=== PATIENT | female | born 1950 | race Caucasian/White ===

== ENCOUNTER 2016-11-06 16:09 | Inpatient (IN) ==
[2016-11-06] MEDS ORDERED: ZALEPLON 5 MG CAPSULE PO PRN (17:33)
[2016-11-06] MEDS ORDERED: ACETAMINOPHEN 325 MG TABLET PO PRN (17:33)
[2016-11-06] MEDS ORDERED: ONDANSETRON 4 MG/2 ML VIAL IV PRN (17:33)
--- NOTE | 2016-11-06 17:39 | Emergency Department Note ---
IJaren Gwan, am scribing for, and in the presence of, Terry Carlin M.D. 16:51. ITesfaye Howard T, M.D., personally performed the services described in this documentation, ascribed by Ananya Eastman in my presence, and it is both accurate and complete [id number] . Arrival - Arrival Chief Complaint: Chest Pain Stated Complaint: TRANSFER FOR NSTEMI FROM [facility] EMS ED Nursing Triage Note: TRANSFER FROM [facility] WITH A NSTEMI Mode of Arrival: Stretcher Limitations: No Limitations Source: Patient, Old Records Reviewed, RN Notes Reviewed Time Seen by Provider: 11/06/16 16:31 - History of Present Illness HPI Narrative: Patient is a 66 y/o female who presents to the ED via EMS from [facility] for further evaluation of chest pain. Pt has a PMHx of [place], CHF , CAD, NIDDM, IDDM, CABG, anemia and stents. Patient stated that she was cleaning her house when the onset of chest pain occurred. This prompted her to report to [facility] ED. Upon review, pt was transferred to ED for further evaluation. She describes her chest pain as pressure and stated that it radiates down her left arm causing weakness and the feeling that her arm is going to "explode". Patient confirmed that this happened before in 12/2015, that she is followed by Dr. Beaver, that she last saw Sports Doctor in office 10/04/2016 and that her pain is worsened with exertion. During exam, pt stated that her pain had eased at [facility] after NTG and pain medication but now she is starting to have pain again. Onset (ago): hour(s) Consistency: constant Severity: moderate Date of Last Menstrual Period: HYST Allergies/Adverse Reactions: Allergies Allergy/AdvReac Type Severity Reaction Status Date / Time FLU MED ? Allergy Seizure Uncoded 08/16/15 17:12 Home Medications: Home Medications Medication Instructions Recorded Confirmed Type Furosemide Tab [Lasix Tab] 80 mg PO QAM 08/17/15 11/06/16 History Pioglitazone HCl/Metformin HCl 2 each PO BID 08/17/15 11/06/16 History [Pioglitazone-Metformin 15-500] Hydrocodone/Acetaminophen [[place] 1 each PO TID PRN 11/06/16 11/06/16 History 10-325 Tablet] Pregabalin [Lyrica] 75 mg PO BID 11/06/16 11/06/16 History Review of System - Review of System 12 point system: reviewed and no additional remarkable complaints except as stated - Review of System Constitutional: Absent: chills, fever Eyes: Absent: discharge Head/Ears/Nose/Throat: Absent: earache Respiratory: Absent: cough Cardiovascular: Present: as per HPI, chest pain Gastrointestinal: Absent: abdominal pain, nausea, vomiting, diarrhea Musculoskeletal: Absent: arm pain, back pain, lower back pain, leg pain, neck pain Skin: Absent: rash Medical,Surgical,& Family Hx - Medical History Cardio: History of: CHF, CAD, [place] No history of: Hypertension Endocrine: History of: Diabetes Mellitus (IDDM), Diabetes Mellitus (NIDDM) - Surgical History Cardiac Surgeries: Sugical HX of: Cardiac Catheterization, Cardiac Surgery (CABG , THEN STENTS) - Family History Family History: Reports;: Family Cancer, Family Diabetes (mother and father), Family Heart Disease, Family Hypertension - Social History Smoking Status: Unknown if ever smoked Frequency of Alcohol Use: Unknown Type of Drug Use: Unknown Exam Vital Signs: Vital Signs Temperature 97.6 F 11/06/16 16:12 Pulse Rate 69 11/06/16 16:12 Respiratory Rate 18 11/06/16 17:28 Blood Pressure 176/80 11/06/16 16:12 O2 Sat by Pulse Oximetry 99 11/06/16 16:12 - General General appearance: alert, in no apparent distress - Head Head exam: Present: atraumatic, normocephalic - Eye Eye exam: Present: normal appearance, PERRL, EOMI - ENT ENT exam: Present: normal oropharynx, mucous membranes moist, TM's normal bilaterally, normal external ear exam - Neck Neck exam: Present: full ROM, trachea midline. Absent: tenderness - Chest Chest inspection: Present: symmetric chest wall rise. Absent: tenderness - Respiratory Respiratory exam: Present: normal lung sounds bilaterally. Absent: respiratory distress - Extremities Exam Extremities exam: Absent: full ROM (left arm ) - Neurological Exam Neurological exam: Present: alert, oriented X3 - Psychiatric Psychiatric exam: Present: normal affect, normal mood - Skin Skin exam: Present: warm, dry, intact, normal color Course Course Narrative: Medical decision making: Patient discussed with hospitalist for admission and cardiology consultation. She appears stable, elevated troponins but this may be chronic, new onset chest pressure similar to her previous heart problems so she will be monitored, troponins followed, and cardiology can continue treatment. Results - Labs Lab Results: I have reviewed the patients labs Labs: Laboratory Tests 11/06/16 16:18 Troponin I 0.091 H Disposition Clinical Impression: Angina pectoris, unstable, Chest pain Case discussed with: patient Disposition: Disch/Xfer-Ipshort Term Hos Condition: Guarded Time of Disposition: 17:39
--- NOTE | 2016-11-06 18:00 | Hospitalist History & Physical ---
Assessment and Plan (1) Chest pain Status: Acute Current Visit: Yes (2) Anemia Status: Acute Current Visit: No (3) Atypical chest pain Status: Acute Current Visit: No (4) Diabetes Status: Chronic Current Visit: No Qualifiers: Diabetes mellitus type: type 2 (5) History of coronary artery bypass graft Status: Chronic Current Visit: No (6) History of coronary artery stent placement Status: Chronic Assessment and plan: Our plan for this patient will be admission to telemetry. Will monitor serial cardiac enzymes and consult cardiology. Check a fasting lipid profile on this patient and recheck her chemistry in the morning. Continue other home meds as appropriate. Current Visit: No History of Present Illness Chief complaint: Chest pain History of present illness: Ms. Santiago is a 66 year old female with past medical history significant for coronary artery disease diabetes sciatic nerve and chronic pain who is in normal state of health till today. Patient is a patient of Dr. Davian zapata in a matter fact did see him this week. She said it was discussed with her about possibly had a left heart cath. She was sent to [place] and was told that her lab checked out okay. Patient reports today that she had a pressure sensation in her chest and radiated to her neck and down her arm. She reports diaphoresis shortness of breath and does report an exertional component with it. Patient went to [facility] and was treated appropriately with 100 mg of Lovenox full dose aspirin and Nitropaste. Patient was transferred to our hospital for further evaluation. Patient does have a mild bump of troponins with it being 0.09. I was consulted to admit the patient through the emergency room. Home Medications Medication Instructions Recorded Confirmed Type Furosemide Tab [Lasix Tab] 80 mg PO QAM 08/17/15 11/06/16 History Pioglitazone HCl/Metformin HCl 2 each PO BID 08/17/15 11/06/16 History [Pioglitazone-Metformin 15-500] Hydrocodone/Acetaminophen [[place] 1 each PO TID PRN 11/06/16 11/06/16 History 10-325 Tablet] Pregabalin [Lyrica] 75 mg PO BID 11/06/16 11/06/16 History Allergies Allergy/AdvReac Type Severity Reaction Status Date / Time FLU MED ? Allergy Seizure Uncoded 08/16/15 17:12 Medical,Surgical,& Family Hx - Medical History Cardio: History of: CHF, CAD, [place] No history of: Hypertension Endocrine: History of: Diabetes Mellitus (IDDM), Diabetes Mellitus (NIDDM) - Surgical History Cardiac Surgeries: Sugical HX of: Cardiac Catheterization, Cardiac Surgery (CABG , THEN STENTS) - Family History Family History: Reports;: Family Cancer, Family Diabetes (mother and father), Family Heart Disease, Family Hypertension - Social History Smoking Status: Unknown if ever smoked Frequency of Alcohol Use: Unknown Type of Drug Use: Unknown 12 point system: reviewed and no additional remarkable complaints except as stated Exam - Constitutional General appearance: normal weight - Head Head exam: Present: normal inspection - Eye Eye exam: Present: EOMI Pupils: Present: AMOS - ENT ENT exam: Present: normal exam - Neck Neck exam: Present: normal inspection - Respiratory Respiratory exam: Present: clear to auscultation bilaterally - Cardiovascular Cardiovascular exam: Present: regular rate and rhythm - GI/Abdominal GI/Abdominal exam: Present: normal bowel sounds - Extremities Exam Extremities exam: Present: edema - Back Exam Back exam: Present: normal inspection - Neurological Exam Neurological exam: Present: alert, oriented X3 - Psychiatric Psychiatric exam: Present: normal affect, normal mood - Skin Skin exam: Present: normal color, warm Results - Labs Labs: Patient EKG was normal sinus rhythm no ST elevations or ST depressions glucose 132 BUN 20 creatinine 1.1 calcium 9.6 sodium 144 potassium 4.2 chloride 106 bicarb 27 CK 44 MMB 0.6 magnesium 1.6 myoglobin 32 urinalysis negative nitrites negative leukocytes white count 10.8 hemoglobin 9.5 hematocrit 31.1 platelets 279
[2016-11-06 18:21] LABS: Basophils # 0.1 10*3/uL (0.0-0.2); Basophils % 0.7 % (0.0-0.8); Eosinophils # 0.2 10*3/uL (0.0-0.87); Eosinophils % 2.1 % (0.00-10.9); Hematocrit 28.2 VOL% (35.7-47.0); Hemoglobin 8.7 GM/DL (12.0-16.0); Immature Granulocytes % 0.4 %; Immature Granulocytes Absolute 0.04 #; Lymphocytes # 4.2 10*3/uL (1.4-4.0); Lymphocytes % 38.2 % (21.3-54.2); Mean Corpuscular HGB Conc 30.9 GM/DL (32-36); Mean Corpuscular Hemoglobin 26 PG (27-34); Mean Corpuscular Volume 82.9 FL (87-102); Mean Platelet Volume 12.6 FL (9.6-12.0); Monocytes # 0.7 10*3/uL (0.11-0.8); Monocytes % 6.3 % (1.7-12.7); Neutrophils # 5.8 10*3/uL (1.4-7.4); Neutrophils % 52.3 % (38.7-73.9); Platelet Count 258 T/CUMM (130-400); Red Cell Distribution Width 17.3 % (9.3-17.3)
[2016-11-06 18:30] LABS: Calcium 9.1 MG/DL (8.5-10.1); Osmolality,Calculated 282.4 MOS/KG (273-304); Potassium 3.9 MMOL/L (3.5-5.1)
[2016-11-06 18:47] LABS: Risk Ratio 4.02; VLDL CHOLESTEROL 20.6 MG/DL
[2016-11-06] MEDS ORDERED: DEXTROSE 50% 25 GM/50 ML VIAL IV PRN (19:35)
[2016-11-06] MEDS ORDERED: GLUCAGON 1 MG VIAL IM PRN (19:35)
[2016-11-06] MEDS: NITROGLYCERIN 2% OINT 1 INCH/GM PACK TOP SCH (21:10)
[2016-11-06] MEDS: PREGABALIN 75 MG CAPSULE PO SCH (21:13)
[2016-11-06] MEDS: MORPHINE 2 MG/1 ML SYRINGE IV PRN (22:08)
[2016-11-06] MEDS: INSULIN REGULAR 100 UNIT/ML SUBCUT SCH (22:10)
[2016-11-07] MEDS: NITROGLYCERIN 2% OINT 1 INCH/GM PACK TOP SCH ×5 (02:58→21:50)
[2016-11-07] MEDS: ENOXAPARIN 40 MG/0.4 ML SYRINGE SUBCUT SCH (06:06)
--- NOTE | 2016-11-07 06:33 | EKG Report ---
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
--- NOTE | 2016-11-07 06:33 | EKG Report ---
Stationary ECG Study [facility] Test Date: 11/07/2016 12:38:59 AM Pat Name: NIGEL GARCIA Department: Room: 289 Gender: F Varnish Finisher: rayne Queen : 1950 Requested by: Spencer Ireland Order Number: [id number] Reading MD: DANIKA SILVA Intervals [place] Rate: 64 P: 38 [place]: 213 QRS: -2 QRSD: 98 T: 75 QT: 417 QTc: 426 Interpretive Statements SINUS RHYTHM WITH FIRST DEGREE AV BLOCK POSSIBLE LEFT ATRIAL ENLARGEMENT NONSPECIFIC T WAVE ABNORMALITY Electronically Signed On 11-08-16 21:50:24 CDT by DANIKA SILVA [email or web address]
[2016-11-07] MEDS: INSULIN REGULAR 100 UNIT/ML SUBCUT SCH ×4 (08:01→21:45)
--- NOTE | 2016-11-07 08:59 | Cardiology Consult Note ---
<Melody Norton - Last Filed: 11/07/16 08:56> Assessment and Plan - Time spent with patient Time spent with patient: Greater than 30 minutes (1) Chest pain Status: Acute Assessment and plan: Patient presented to [facility] with complaints of chest discomfort there are concerning for unstable angina. Overnight, troponin is 0.4. Currently, patient is without chest pain, heaviness and tightness. I will keep patient n.p.o. at this time and further discuss with Dr. Galvan, the need for cardiac cath vs noninvasive workup. Current Visit: Yes (2) Elevated troponin Status: Acute Current Visit: Yes (3) CAD (coronary artery disease) Status: Chronic Assessment and plan: -Low-dose Crestor was initiated for further risk stratification. -Continue aspirin -Continue nitroglycerin -According to Dr. Beaver's office note, patient is intolerant to beta- maya due to hypotension. Current Visit: No (4) Diabetes Status: Chronic Assessment and plan: Will initiate low-dose EVERT inhibitor at this time as patient has history of diabetes and CAD. Will monitor renal function with daily BMP. Current Visit: No Qualifiers: Diabetes mellitus type: type 2 (5) History of coronary artery bypass graft Status: Chronic Assessment and plan: Patient underwent CABG in 1998 with OCONNOR to LAD, SVG to second circumflex marginal and SVG to RCA. Current Visit: No (6) Hyperlipidemia Status: Acute Assessment and plan: Will initiate low-dose Crestor for further risk stratification. Current Visit: Yes (7) Anemia Status: Acute Assessment and plan: Defer further workup of this to hospital medicine. No overt bleeding noted. Current Visit: No (8) Obstructive sleep apnea Status: Acute Assessment and plan: Encouraged patient to bring CPAP machine from home. CPAP nightly. Current Visit: No (9) Obese Status: Chronic Assessment and plan: Counseled patient on the importance of weight loss. Current Visit: Yes History of Present Illness - Data of Consult Patient: known to practice within the last 3 years Consult date: 11/07/16 Requesting Physician: Spencer Ireland Primary care physician: Ursula Bautista - Consult Narrative Reason for consult: Chest pain, elevated troponin History of present illness: PCP: Alberta Bautista Product Engineering Manager: Dr. Beaver Ms. Santiago is a 66 year old female with known history of coronary artery disease , routinely followed by Dr. Beaver. Patient presented to the ED via EMS from [facility] for further evaluation of chest pain. Patient has cardiac risk factors significant for known history of coronary artery disease, diabetes, obesity, sedentary lifestyle, former smoker (reports that she quit in 1998) and family history of coronary artery disease (mother, father, brother and sister). Patient has a past medical history of obstructive sleep apnea and depression/anxiety. According to Dr. Beaver's noted, she in intolerant to beta blockers due to hypotension. Patient underwent CABG in 1998 with OCONNOR to LAD, SVG to second circumflex marginal and SVG to RCA. Patient's most recent heart catheterization was August [address] Beaver with the following impressions noted: Impression: Patent vein graft to the obtuse marginal Patent vein graft to the right coronary No significant disease in the left coronary artery system except for the occluded obtuse marginal, which is well perfused with the bypass--all stents are patent Occluded mid right coronary artery--distal vessel well perfused with the graft Normal global LV systolic function. Left ejection fraction is greater than 55- 65% Moderate elevation LVDP, 23 mmHg Right femoral artery angiogram Angio-Seal of the right femoral artery--successful Known atretic SARINA to the LAD LAD-old Patient was in her usual state of health until yesterday around 9:30 when she began having left-sided chest tightness that radiated down her left arm while cleaning her house. This is associated with shortness of breath, nausea and diaphoresis. She tells me that her chest discomfort was made worse with exertion. She is unable to identify any specific alleviating factors. She confirms that her chest pain was ongoing until she arrived at [facility] and received nitroglycerin, lasting approximately one hour. She rates her pain an 8 out of 10. Subsequently, she was transferred to [facility] for further evaluation of her symptoms. She reports that her chest pain feels very similar to the time when she underwent cabg. She denies fever, chills, cough, vomiting, abdominal pain, melena, hematochezia, orthopnea and PND. She has been admitted under hospital medicine service and housed on the telemetry floor. Cardiology has been consulted for further evaluation of her chest pain. Patient was seen and examined on the telemetry unit. She is currently without chest pain, heaviness or tightness. Overnight her troponin moncho from 0.091 to 0.433. I have added CKMB and total creatine kinase to her lab draw. EKG is benign. Chest xray ordered. Results pending. Will keep patient n.p.o. and further discuss with Dr. Galvan. Further plan and addendum to follow. CC: Mary Vaca MD - Home Medications and Allergies Home Medications: Home Medications Medication Instructions Recorded Confirmed Type Furosemide Tab [Lasix Tab] 80 mg PO QAM 08/17/15 11/06/16 History Pioglitazone HCl/Metformin HCl 2 each PO BID 08/17/15 11/06/16 History [Pioglitazone-Metformin 15-500] Hydrocodone/Acetaminophen [[place] 1 each PO TID PRN 11/06/16 11/06/16 History 10-325 Tablet] Pregabalin [Lyrica] 75 mg PO BID 11/06/16 11/06/16 History Allergies/Adverse Reactions: Allergies Allergy/AdvReac Type Severity Reaction Status Date / Time FLU MED ? Allergy Seizure Uncoded 08/16/15 17:12 - Constitutional Constitutional: Absent: chills, fatigue, fever(s), frequent falls, weakness - Cardiovascular Cardiovascular: Present: as per HPI, chest pain with activity, diaphoresis, dyspnea, dyspnea on exertion, edema, radiating jaw, neck or arm pain, palpitations. Absent: claudication, lightheadedness, orthopnea, PND - Respiratory Respiratory: Present: dyspnea, dyspnea on exertion. Absent: cough, wheezing, pain on inspiration, change in phlegm color - Gastrointestinal Gastrointestinal: Present: nausea. Absent: abdominal pain, change in bowel habits, coffee ground emesis, diarrhea, heartburn, hematemesis, hematochezia, loose stools, melena, vomiting - Neurological Neurological: Absent: abnormal gait, abnormal speech, behavioral changes, dizziness, frequent falls, syncope - Hematologic/Lymphatic Hematologic/Lymphatic: Absent: easy bleeding, easy bruising, lymphadenopathy Medical,Surgical,& Family Hx - Medical History Cardio: History of: CHF, CAD, [place] No history of: Hypertension Psychological: History of: Depression Endocrine: History of: Diabetes Mellitus (NIDDM), Dyslipidemia Respiratory: History of: Obstructive Sleep Apnea Musculoskeletal: History of: Back/Neck Problems (Bulging disc) - Surgical History Cardiac Surgeries: Sugical HX of: Cardiac Catheterization, Cardiac Surgery ( CABG and STENTS) - Family History Family History: Reports;: Family Cancer, Family Diabetes, Family Heart Disease, Family Hypertension - Social History Smoking Status: Former smoker (quit in 1998) Frequency of Alcohol Use: Unknown Type of Drug Use: Unknown Physical Examination Vital Signs Temp Pulse Resp BP Pulse Ox 97.6 F 69 20 176/80 99 11/06/16 16:12 11/06/16 16:12 11/06/16 16:12 11/06/16 16:12 11/06/16 16:12 General: Present: Appears Well, No Apparent Distress HEENT: Present: Normocephaly Neck: Present: Supple Neck, Midline Trachea, No JVD/HJR, No Bruit, No Lymphadenopathy, No Thyromegaly Cardiac: Present: Reg Rate and Rhythm, Regular Rate, Regular Rhythm Lungs: Present: Normal Exam, Clear Ascult./Percussion, Normal Breath Sounds Abdomen: Present: Soft, Active Bowel Sounds, No Masses, Non-Tender Skin: Present: Clear. Absent: Rash, Suspicious Lesions, Ulceration Gait: Present: Normal Gait Extremities: Present: Normal Gait, No Clubbing, No Cyanosis, Normal Upper Extr. Pulses, Normal Lower Extr. Pulses, Edema (1+ lower extremity edema. (patient reports chronic edema)) Result/EKG - Labs CBC & BMP: 11/06/16 16:18 11/06/16 16:18 Lab Results: I have reviewed the past 24 hour labs Labs: Laboratory Results - last 24 hr 11/06/16 11/06/16 11/07/16 21:02 21:28 07:28 POC Glucose 166 H 142 H Troponin I 0.433 H D <Spencer Galvan - Last Filed: 11/07/16 10:21> History of Present Illness - Consult Narrative History of present illness: Interviewed and examined patient and chart reviewed. Discussed his case of Melody Norton NP. I agree with the evaluation and plan. Ms. Santiago is a 66 year old female known coronary disease with bypass as noted and catheterization results in 2016 as noted . The patient certainly isn't having chest discomfort consistent with angina with a troponin minimally increased. With her risk factors though she should have cardiac catheterization for definitive diagnosis and therapy. Discussed cardiac catheterization procedure in detail with the patient and family present which include and daughter. Reviewed the indications of procedure as well as how the procedure procedure be carried out in the risk. I discussed cardiac catheterization and percutaneous coronary intervention with the patient and available family. I reviewed with them the indications for the procedure and the basis of how the procedure would be carried out. I also reviewed with them the risk of the procedure which include but not necessarily limited to access site bleeding, bruising, pain, swelling or vascular injury that may require emergency vascular surgery, blood transfusion, or thrombin injection. Also discussed the possibility of stroke, myocardial infarction, arrhythmia which may require electrocardioversion, and the possibility of dye reaction that would require medical therapy. Also discussed the possibility of coronary artery injury, ruptured, closure or perforation that may require emergency bypass surgery. We also discussed the possibility of from a major complication. They voice understanding and agree to proceed. CC: Mary Vaca MD Physical Examination Vital Signs Temp Pulse Resp BP Pulse Ox 97.6 F 69 20 176/80 99 11/06/16 16:12 11/06/16 16:12 11/06/16 16:12 11/06/16 16:12 11/06/16 16:12 Result/EKG - Labs CBC & BMP: 11/06/16 16:18 11/06/16 16:18 Labs: Laboratory Results - last 24 hr 11/06/16 11/06/16 11/07/16 21:02 21:28 07:28 POC Glucose 166 H 142 H Troponin I 0.433 H D
[2016-11-07] MEDS ORDERED: FUROSEMIDE 80 MG TABLET PO SCH (09:00)
--- NOTE | 2016-11-07 09:10 | EKG Report ---
Stationary ECG Study [facility] Test Date: 11/06/2016 4:00:36 PM Pat Name: NIGEL GARCIA Department: Room: 289 Gender: F Shingle Weaver: : 1950 Requested by: Terry Feng Order Number: [id number] Reading MD: DANIKA SILVA Intervals [place] Rate: 62 P: 42 NE: 203 QRS: 12 QRSD: 95 T: 16 QT: 395 QTc: 401 Interpretive Statements SINUS RHYTHM Electronically Signed On 11-08-16 21:38:29 CDT by DANIKA SILVA [id number]
[2016-11-07] MEDS: ASPIRIN EC 325 MG TABLET PO SCH (09:29)
[2016-11-07] MEDS: PREGABALIN 75 MG CAPSULE PO SCH ×2 (09:29→21:45)
[2016-11-07] MEDS: MORPHINE 2 MG/1 ML SYRINGE IV PRN (09:38)
--- NOTE | 2016-11-07 10:17 | EKG Report ---
Stationary ECG Study [facility] Test Date: 11/07/2016 10:18:09 AM Pat Name: NIGEL GARCIA Department: Room: 289 Gender: F Physical Therapist Aide: HEENA : 1950 Requested by: Mary Mckeon Order Number: [id number] Reading MD: DANIKA SILVA Intervals [place] Rate: 59 P: 37 [place]: 209 QRS: 2 QRSD: 97 T: 60 QT: 411 QTc: 411 Interpretive Statements SINUS RHYTHM Electronically Signed On 11-13-16 22:22:22 CDT by DANIKA SILVA [id number]
[2016-11-07 10:19] LABS: Basophils % 0.5 % (0.0-0.8); Eosinophils # 0.2 10*3/uL (0.0-0.87); Eosinophils % 3.1 % (0.00-10.9); Hematocrit 28.2 VOL% (35.7-47.0); Hemoglobin 8.7 GM/DL (12.0-16.0); Immature Granulocytes % 0.5 %; Immature Granulocytes Absolute 0.04 #; Lymphocytes # 3.5 10*3/uL (1.4-4.0); Lymphocytes % 44.7 % (21.3-54.2); Mean Corpuscular HGB Conc 30.9 GM/DL (32-36); Mean Corpuscular Hemoglobin 26 PG (27-34); Mean Corpuscular Volume 83.2 FL (87-102); Mean Platelet Volume 11.8 FL (9.6-12.0); Monocytes # 0.6 10*3/uL (0.11-0.8); Monocytes % 7.2 % (1.7-12.7); Neutrophils # 3.5 10*3/uL (1.4-7.4); Platelet Count 253 T/CUMM (130-400); Red Blood Count 3.39 MC/CUMM (3.8-5.5); Red Cell Distribution Width 17.2 % (9.3-17.3); White Blood Count 7.8 T/CUMM (4-12)
[2016-11-07] MEDS ORDERED: DIAZEPAM 5 MG TABLET PO ONE (10:22)
[2016-11-07] MEDS ORDERED: MAGNESIUM SULF RIDER 2 GM in PREMIX 1 EACH IV PRN (10:22)
[2016-11-07] MEDS ORDERED: POTASSIUM CHLORIDE RIDER 10 MEQ in PREMIX 1 EACH IV PRN (10:22)
[2016-11-07] MEDS ORDERED: diphenhydrAMINE CAP 25 MG CAPSULE PO ONE (10:22)
[2016-11-07] MEDS ORDERED: SODIUM CHLORIDE 0.9% 1,000 ML IV SCH (10:30)
--- NOTE | 2016-11-07 10:39 | Event Note ---
I reviewed Ms. Santiago's previous heart catheterizations, notes she has non-STEMI with mild persistent chest discomfort. I agree that urgent catheterization will be helpful. She is normally followed by Dr. Beaver. We discussed the risks and benefits of the procedure. She reports no complications with her previous heart catheterization. I discussed with the patient the risks and benefits of heart catheterization including but not limited to: , stroke, heart attack, vascular damage, reaction to medicine or dye, bleeding requiring blood transfusion, failure of the procedure, and the possible need for planned or emergency surgery. I have answered all the patient's questions regarding the procedure, and the patient is agreeable to proceed.
[2016-11-07] MEDS ORDERED: LIDOCAINE 1% 20 ML VIAL ONE (10:40)
[2016-11-07] MEDS ORDERED: MIDAZOLAM 2 MG/2 ML VIAL ONE ×2 (10:42→11:04)
[2016-11-07] MEDS ORDERED: HYDROmorphone 2 MG/1 ML VIAL ONE ×2 (10:42→11:06)
[2016-11-07 10:44] LABS: Calcium 8.8 MG/DL (8.5-10.1); Magnesium 2.1 MG/DL (1.8-2.4); Potassium 4.2 MMOL/L (3.5-5.1)
[2016-11-07] MEDS ORDERED: NITROGLYCERIN SL 0.4 MG TABLET SL ONE (10:59)
[2016-11-07] MEDS ORDERED: ENOXAPARIN 60 MG/0.6 ML SYRINGE ONE (11:14)
[2016-11-07] MEDS ORDERED: TICAGRELOR 90 MG TABLET ONE (11:14)
[2016-11-07] MEDS ORDERED: ENOXAPARIN 30 MG/0.3 ML SYRINGE ONE (12:13)
[2016-11-07] MEDS ORDERED: NITROGLYCERIN SL 0.4 MG TABLET SL PRN (12:43)
[2016-11-07] MEDS ORDERED: ONDANSETRON 4 MG/2 ML VIAL ONE (12:43)
[2016-11-07] MEDS ORDERED: HYDROmorphone 2 MG/1 ML VIAL IV PRN (12:43)
--- NOTE | 2016-11-07 12:56 | Cardiac Catheterization ---
Date of Procedure:: 11/07/16 Post-op diagnosis: same Procedure: Procedure performed: 1. Left heart catheterization 2. Coronary angiography 3. Bypass graft evaluate 2 4. Angioplasty distal RCA (2.0 x 20 noncompliant) 5. Right femoral arteriotomy closure with Angio-Seal device Brief clinical summary: Ms. Santiago is a 66-year-old with a CABG in 1998, presented with non-STEMI and persistent chest pain. Description of procedure: After obtaining informed consent, the right groin was prepped and draped in the usual sterile fashion. Next a short 6 Romanian sheath was placed in the right femoral artery using a modified Seldinger technique, after the patient received IV sedation and local anesthetic. Next a JL4 catheter was advanced over a guidewire under fluoroscopic guidance, and was engaged to the left coronary artery after which angiography was performed in multiple views. This was then removed over a wire, and a JR4 catheter was advanced in similar fashion, and was engaged to the right coronary artery after which angiography was performed in multiple views. The JL4 was then pulled back and used to engage the 2 vein grafts were angios performed in multiple views. Next a bent pigtail catheter was advanced into the left ventricle, where hemodynamic measurements were obtained, and left ventriculography was performed. An angiogram of the sheath showed that it was inserted in the right common femoral artery in a vessel suitable for closure. Percutaneous coronary intervention was then performed as described below. After the interventional hemostasis was obtained with Angio-Seal device with no residual bleeding. The patient was transferred from the label cutter in good condition without complication. Percutaneous coronary mention: The patient on the Inspector Hairspring Truing having received 40 mg of Lovenox this morning. I gave her an additional 0.6 g/kg of IV Lovenox prior to procedure. She was also loaded with Brilinta prior to the procedure. She had already received aspirin. After approximately an hour she was given an additional 0.2 mg/kg of IV Lovenox. A hockey-stick to guiding catheter was advanced engaged to the right coronary artery. Next a pro-water wire was advanced and crossed the severe distal RCA disease but would not advance into the long acute marginal branch. I advanced a 2.0 x 20 balloon but lost guide access. It appeared that there was clearly not enough backup support from the hockey-stick guide. I changed out over a wire for the AR-2 guiding catheter with sideholes. A pro-water wire was again advanced and I was able to advance it into the distal RCA past the takeoff of the large long acute marginal branch. The distal RCA is noted to be occluded and is filled by bypass graft. The wire would favor this every time despite many attempts to cross into the acute marginal. I used multiple pro-water wire is and also tried a PT Graphix without success. I performed angioplasty of the distal RCA prior to the takeoff of the acute marginal which was critically disease. The patient's chest pain did resolve but she still had greater than 90% residual stenosis. I try to advance a 2.25 x 32 Synergy stent but could not advance it through the most distal area of disease. It was then removed. The area was again of angioplasty with a 2 oh by 20 balloon. I have not set aside it was futile to continue to try to cross in the acute marginal. Given she had resolution of her chest pain and the PDA and posterolateral or filling for the bypass graft I decided to abandon further attempts to cross it. Coronary angiography: Left main coronary artery who developed and free of disease. The left anterior CRE has diffuse mild disease of 30-40% proximally, and has diffuse 50-60% disease in the mid to distal portion of the vessel with disease beginning and end of a mid LAD bridge which did not have any contraction during systole. There is 1 high diagonal branch nearly average caliber. The LAD does barely reach the apex. The circumflex gives off one nearly average caliber obtuse marginal which is reasonably long and has a 30% proximal stenosis. The other obtuse marginal is occluded at the ostium cannot be visualized except for the bypass graft. The right coronary artery is the dominant vessel is larger than average caliber. There is moderate 30-50% proximal to mid disease and then critical 90-99% disease in the mid to distal portion of the vessel. The distal RCA is occluded after the takeoff of a long larger than average caliber acute marginal branch which appears to be about 2.25 mm in diameter per Grafts: The OCONNOR to LAD graft was noted to be atretic in 2012. The vein graft to the OM is widely patent with normal flow. The vein graft to the RCA PDA is widely patent with normal flow. Left ventricular apical left ventricle grossly normal in size with normal LV systolic function. Estimated ejection fraction 55% without segmental motion only. There appears to be at least 2+ mitral regurgitation, but study is difficult. Impression: 1. Normal overall LV systolic function with ejection fraction is to be 55% without segmental wall motion mildly 2. Right dominant system 3. Three-vessel CAD as described above including but not limited to: A. Diffuse 50-60% mid to distal LAD disease with a mid LAD "bridge" without significant stenosis. B. Occluded ostial OM C. Severe 90-95% mid to distal RCA disease before the takeoff of a large very long acute marginal branch, and distal occlusion thereafter 4. Grafts: A. OCONNOR to LAD was noted to be atretic in 2012 B. Vein graft OM is widely patent with normal flow C. Vein graft to right sided PDA is widely patent with normal flow 5. Status post angioplasty of distal RCA disease with suboptimal result ( greater than 90% residual stenosis, however there was TRACY-3 flow and resolution of chest pain; I was unable to cross the lesion with a stent) Recommendation discussion: Unfortunate was unable to stem asperities critical distal RCA disease which appeared to extend to just above her the takeoff of her very long acute marginal branch which is the culprit vessel for non-STEMI. We will continue her on IV fluid at 75 cc an hour watch her blood pressure. She will continue on aspirin and Brilinta. She will need to avoid squatting strain lifting for the next 1 week. It is however encouraging that her chest pain resolved during the procedure. Anesthesia: minimal conscious sedation Surgeon / Physician: Richar Cifuentes Rv Body Mechanic: other Estimated blood loss: minimal Specimens: none sent Condition: stable Disposition: floor - Medications / Follow-up
[2016-11-07] MEDS ORDERED: SODIUM CHLORIDE 0.45% 1,000 ML IV SCH (13:00)
--- NOTE | 2016-11-07 13:01 | XRay Report ---
XR chest 1V portable Indication: Chest pain Comparison: Chest x-ray dated November 06, 2016 Technique: Single frontal view of the chest Findings: Continued cardiomegaly status post sternotomy. Continued coarse bilateral interstitial prominence, greatest within the left lower lung, consistent with chronic interstitial lung disease. Mildly progressed left basilar atelectasis/consolidation, suspicious for pneumonia. Osseous and surrounding soft tissue structures appear grossly unchanged. IMPRESSION: As above. PROCEDURE INTERPRETED AT [facility] DEPARTMENT OF RADIOLOGY Final Report Signed by: Dr Eric Schofield
--- NOTE | 2016-11-07 13:14 | EKG Report ---
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
[2016-11-07] MEDS: ROSUVASTATIN 20 MG TABLET PO SCH (14:15)
--- NOTE | 2016-11-07 16:07 | Hospitalist Progress Note ---
Assessment and Plan (1) NSTEMI (non-ST elevated myocardial infarction) Status: Acute Assessment and plan: Status post angioplasty of the RCA but unable to place a stent, continue aspirin and Brilinta Current Visit: Yes (2) CHF (congestive heart failure) Status: Acute Assessment and plan: Status post cardiac cath showed an EF of 55%, hold Lasix for now. Current Visit: No (3) Obstructive sleep apnea Status: Acute Assessment and plan: Needs to be compliant with her CPAP at night. Patient is morbidly obese. Current Visit: No (4) CAD (coronary artery disease) Status: Chronic Assessment and plan: History of CABG in the past. Status post cardiac cath today showing 90% stenosis RCA Current Visit: No (5) Diabetes Status: Chronic Assessment and plan: Hold metformin/Actos combo patient should not be on Actos due to heart failure, hemoglobin A1c Current Visit: No Qualifiers: Diabetes mellitus type: type 2 Hospitalist: Subjective Interval history: Patient continues to have chest pain this morning when I saw her. I talked to Dr. Galvan, he was coming up to see her. She had Nitropaste on but continued to have pain. Dr. Cifuentes took her to the Triage Register Nurse and found that she had critical stenosis of her RCA. He is able to angioplasty her open but was unable to stand her. Exam - Constitutional Vitals: Period Temp Pulse Resp BP Sys/Copeland Pulse Ox Last 24 Hr 96.8 F-98.9 F 55-72 18-20 130-184/57-75 95-100 Exam: Heart Rate-Heart Rate-Heart Rate-[RRR] Lungs-[CTAB] GI-[+bs soft, NT] Ext-[no edema] Neuro [Motor 5/5], [alert and oriented times 3] psych [normal mood and affect] General [acute distress due to chest pain] Results - Labs CBC & BMP: 11/07/16 09:58 11/07/16 09:58 Lab Results: I have reviewed the past 24 hour labs Specialty Discharge - Follow Up or Referrals
[2016-11-07] MEDS ORDERED: ROSUVASTATIN 10 MG TABLET PO SCH (21:00)
[2016-11-07] MEDS: TICAGRELOR 90 MG TABLET PO SCH (21:45)
[2016-11-08] MEDS: NITROGLYCERIN 2% OINT 1 INCH/GM PACK TOP SCH ×2 (03:02→08:50)
[2016-11-08] MEDS: ENOXAPARIN 40 MG/0.4 ML SYRINGE SUBCUT SCH (06:38)
--- NOTE | 2016-11-08 07:27 | EKG Report ---
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
[2016-11-08 07:35] LABS: Basophils % 0.4 % (0.0-0.8); Eosinophils # 0.2 10*3/uL (0.0-0.87); Eosinophils % 2.6 % (0.00-10.9); Hematocrit 25.7 VOL% (35.7-47.0); Immature Granulocytes % 0.5 %; Immature Granulocytes Absolute 0.04 #; Lymphocytes # 2.3 10*3/uL (1.4-4.0); Lymphocytes % 27.1 % (21.3-54.2); Mean Corpuscular HGB Conc 31.1 GM/DL (32-36); Mean Corpuscular Hemoglobin 26 PG (27-34); Mean Corpuscular Volume 84.5 FL (87-102); Mean Platelet Volume 11.6 FL (9.6-12.0); Monocytes # 0.7 10*3/uL (0.11-0.8); Monocytes % 7.9 % (1.7-12.7); Neutrophils # 5.2 10*3/uL (1.4-7.4); Neutrophils % 61.5 % (38.7-73.9); Platelet Count 206 T/CUMM (130-400); Red Blood Count 3.04 MC/CUMM (3.8-5.5); Red Cell Distribution Width 17.2 % (9.3-17.3); White Blood Count 8.4 T/CUMM (4-12)
[2016-11-08 07:56] LABS: Calcium 8.6 MG/DL (8.5-10.1); Magnesium 2.1 MG/DL (1.8-2.4); Potassium 4.4 MMOL/L (3.5-5.1)
[2016-11-08] MEDS: INSULIN REGULAR 100 UNIT/ML SUBCUT SCH ×2 (08:46→13:21)
--- NOTE | 2016-11-08 08:46 | Cardiology Progress Note ---
<Melody Norton - Last Filed: 11/08/16 08:43> Assessment and Plan (1) NSTEMI (non-ST elevated myocardial infarction) Status: Resolved Assessment and plan: Status post angioplasty of RCA. Unfortunately, was unable to stent critical distal RCA disease. Will treat this medically. -Continue Brilinta and aspirin -Continue Crestor -According to Dr. Beaver's office note, patient is intolerant to beta- maya due to hypotension. -Patient was given follow-up point with Dr. Beaver in 2 weeks with CBC, BMP , magnesium and EKG. -Further plan and addendum to follow per Dr. Galvan. Current Visit: Yes (2) CAD (coronary artery disease) Status: Chronic Current Visit: No (3) Diabetes Status: Chronic Assessment and plan: Continue current plan of care. -Continue EVERT inhibitor Current Visit: No Qualifiers: Diabetes mellitus type: type 2 (4) History of coronary artery bypass graft Status: Chronic Assessment and plan: Patient underwent CABG in 1998 with OCONNOR to LAD, SVG to second circumflex marginal and SVG to RCA. Current Visit: No (5) Hyperlipidemia Status: Acute Assessment and plan: Continue lipid-lowering agent. Current Visit: Yes (6) Anemia Status: Chronic Assessment and plan: Patient appears to have chronic anemia. No overt bleeding is noted. I will check stool for occult blood. Continue dual antiplatelet therapy at this time and recheck CBC at patient's follow-up appointment with Dr. Beaver in 2 weeks. Current Visit: No (7) Obstructive sleep apnea Status: Chronic Assessment and plan: CPAP nightly. Current Visit: No (8) Obese Status: Chronic Assessment and plan: Counseled patient on the importance of weight loss. Current Visit: Yes Cardiology - PN: Subj Interval history: PCP: Alberta Bautista Vending Machine Host/Hostess: Dr. Beaver Ms. Santiago is a 66 year old female with known history of coronary artery disease , routinely followed by Dr. Beaver. Patient has cardiac risk factors significant for known history of coronary artery disease, diabetes, obesity, sedentary lifestyle, former smoker (reports that she quit in 1998) and family history of coronary artery disease (mother, father, brother and sister). Patient has a past medical history of obstructive sleep apnea and depression/ anxiety. According to Dr. Beaver's noted, she in intolerant to beta blockers due to hypotension. Patient underwent CABG in 1998 with OCONNOR to LAD, SVG to second circumflex marginal and SVG to RCA. Patient was transferred from [facility] with non-ST elevation ID and subsequently underwent left heart catheterization per Dr. Cifuentes with the following impressions noted. Impression: 1. Normal overall LV systolic function with ejection fraction is to be 55% without segmental wall motion mildly 2. Right dominant system 3. Three-vessel CAD as described above including but not limited to: A. Diffuse 50-60% mid to distal LAD disease with a mid LAD "bridge" without significant stenosis. B. Occluded ostial OM C. Severe 90-95% mid to distal RCA disease before the takeoff of a large very long acute marginal branch, and distal occlusion thereafter 4. Grafts: A. OCONNOR to LAD was noted to be atretic in 2012 B. Vein graft OM is widely patent with normal flow C. Vein graft to right sided PDA is widely patent with normal flow 5. Status post angioplasty of distal RCA disease with suboptimal result ( greater than 90% residual stenosis, however there was TRACY-3 flow and resolution of chest pain; I was unable to cross the lesion with a stent) Recommendation discussion: Unfortunately, was unable to stent critical distal RCA disease which appeared to extend to just above her the takeoff of her very long acute marginal branch which is the culprit vessel for non-STEMI. She will continue on aspirin and Brilinta. She will need to avoid squatting strain lifting for the next 1 week. It is however encouraging that her chest pain resolved during the procedure. Post heart catheterization patient was transferred back to the telemetry unit in stable condition. Patient is without chest pain, heaviness and tightness and is anxious for discharge home. Right groin is soft without bleeding, hematoma and bruit. Distal pulses present. Patient has ambulated around her room and down the velázquez without difficulty. Right groin has remained stable post ambulation. Right groin precautions have been reviewed with the patient. She verbalizes understanding. She denies having any chest discomfort post cardiac catheterization. She confirms that her chest tightness was relieved after angioplasty of her RCA. Creatinine is stable post cath at 0.8. Patient is stable and from a cardiac standpoint she can be discharged home with a follow up appointment with Dr. Beaver in approximately 2 weeks with CBC, BMP , mag and ekg. Exam (Progress Note) - Constitutional Vitals: Period Temp Pulse Resp BP Sys/Copeland Pulse Ox Last 24 Hr 96.6 F-97.7 F 58-68 16-20 140-184/39-81 95-100 Exam: General: Present: Appears Well, No Apparent Distress HEENT: Present: Normocephaly Neck: Present: Supple Neck, Midline Trachea, No JVD/HJR, No Bruit, No Lymphadenopathy, No Thyromegaly Cardiac: Present: Reg Rate and Rhythm, Regular Rate, Regular Rhythm Lungs: Present: Normal Exam, Clear Ascult./Percussion, Normal Breath Sounds Abdomen: Present: Soft, Active Bowel Sounds, No Masses, Non-Tender Skin: Present: Clear. Absent: Rash, Suspicious Lesions, Ulceration Gait: Present: Normal Gait Extremities: Present: Normal Gait, No Clubbing, No Cyanosis, Normal Upper Extr. Pulses, Normal Lower Extr. Pulses, Edema (1+ lower extremity edema. (patient reports chronic edema). Right groin is soft without bleeding, hematoma and bruit. Distal pulses present. Result/EKG - Labs CBC & BMP: 11/08/16 07:08 11/08/16 07:08 Lab Results: I have reviewed the past 24 hour labs Labs: Laboratory Results - last 24 hr 11/07/16 11/07/16 11/08/16 15:56 21:11 07:08 WBC 8.4 RBC 3.04 L Hgb 8.0 L Hct 25.7 L MCV 84.5 L MCH 26 L MCHC 31.1 L RDW 17.2 Plt Count 206 MPV 11.6 Neut % (Auto) 61.5 Lymph % (Auto) 27.1 [place] % (Auto) 7.9 Eos % (Auto) 2.6 Baso % (Auto) 0.4 Neut # (Auto) 5.2 Lymph # (Auto) 2.3 [place] # (Auto) 0.7 Eos # (Auto) 0.2 Baso # (Auto) 0.0 Immature Gran % 0.5 Nucleated RBC % 0.0 Immature Gran # 0.04 Nucleated RBCs # 0.00 Sodium Potassium Chloride Carbon Dioxide Anion Gap BUN Creatinine GFR Calculation BUN/Creatinine Ratio Glucose POC Glucose 200 H 230 H Calculated Osmolality Calcium Magnesium 11/08/16 11/08/16 07:08 07:50 WBC RBC Hgb Hct MCV MCH MCHC RDW Plt Count MPV Neut % (Auto) Lymph % (Auto) [place] % (Auto) Eos % (Auto) Baso % (Auto) Neut # (Auto) Lymph # (Auto) [place] # (Auto) Eos # (Auto) Baso # (Auto) Immature Gran % Nucleated RBC % Immature Gran # Nucleated RBCs # Sodium 143 Potassium 4.4 Chloride 110 H Carbon Dioxide 26 Anion Gap 11.4 BUN 15 Creatinine 0.80 GFR Calculation 90 BUN/Creatinine Ratio 18.00 Glucose 111 H POC Glucose 118 H Calculated Osmolality 286.0 Calcium 8.6 Magnesium 2.1 Specialty Discharge - Follow Up or Referrals Follow up with: Deandra barrera in [place] [Other] - 1 Week Davian Beaver MD [Physician] - 11/22/16 3:00 pm (Follow-up appointment with Dr. Beaver in approximately 2 weeks with CBC, BMP, magnesium and EKG.) Alexander Ramirez MD [Physician] - 2 Weeks (workup on anemia ) <Spencer Galvan - Last Filed: 11/08/16 12:41> Cardiology - PN: Subj Interval history: Patient personally interviewed and examined and chart reviewed. Discussed case with Melody Norton and beatriz. Reassessment evaluation and plan. Patient did well post intervention attempt to the RCA. She'll continue medical therapy. She will keep her follow with Dr. Davian Beaver. Exam (Progress Note) - Constitutional Vitals: Period Temp Pulse Resp BP Sys/Copeland Pulse Ox Last 24 Hr 96.6 F-98.5 F 58-69 16-20 132-184/39-81 95-100 Result/EKG - Labs CBC & BMP: 11/08/16 07:08 11/08/16 07:08 Labs: Laboratory Results - last 24 hr 11/07/16 11/07/16 11/08/16 15:56 21:11 07:08 WBC 8.4 RBC 3.04 L Hgb 8.0 L Hct 25.7 L MCV 84.5 L MCH 26 L MCHC 31.1 L RDW 17.2 Plt Count 206 MPV 11.6 Neut % (Auto) 61.5 Lymph % (Auto) 27.1 [place] % (Auto) 7.9 Eos % (Auto) 2.6 Baso % (Auto) 0.4 Neut # (Auto) 5.2 Lymph # (Auto) 2.3 [place] # (Auto) 0.7 Eos # (Auto) 0.2 Baso # (Auto) 0.0 Immature Gran % 0.5 Nucleated RBC % 0.0 Immature Gran # 0.04 Nucleated RBCs # 0.00 Sodium Potassium Chloride Carbon Dioxide Anion Gap BUN Creatinine GFR Calculation BUN/Creatinine Ratio Glucose POC Glucose 200 H 230 H Calculated Osmolality Calcium Magnesium 11/08/16 11/08/16 11/08/16 07:08 07:50 11:54 WBC RBC Hgb Hct MCV MCH MCHC RDW Plt Count MPV Neut % (Auto) Lymph % (Auto) [place] % (Auto) Eos % (Auto) Baso % (Auto) Neut # (Auto) Lymph # (Auto) [place] # (Auto) Eos # (Auto) Baso # (Auto) Immature Gran % Nucleated RBC % Immature Gran # Nucleated RBCs # Sodium 143 Potassium 4.4 Chloride 110 H Carbon Dioxide 26 Anion Gap 11.4 BUN 15 Creatinine 0.80 GFR Calculation 90 BUN/Creatinine Ratio 18.00 Glucose 111 H POC Glucose 118 H 160 H Calculated Osmolality 286.0 Calcium 8.6 Magnesium 2.1
[2016-11-08] MEDS: TICAGRELOR 90 MG TABLET PO SCH (08:48)
[2016-11-08] MEDS: PREGABALIN 75 MG CAPSULE PO SCH (08:48)
[2016-11-08] MEDS: ROSUVASTATIN 20 MG TABLET PO SCH (08:48)
[2016-11-08] MEDS: ASPIRIN EC 325 MG TABLET PO SCH (08:48)
[2016-11-08] MEDS ORDERED: LISINOPRIL 2.5 MG TABLET PO SCH (09:00)
[2016-11-08] MEDS ORDERED: ASPIRIN EC 81 MG TABLET PO SCH (09:04)
--- NOTE | 2016-11-08 11:13 | Discharge Summary ---
Hospital Course - Hospital Course Hospital Course: 66-year-old obese female with history of coronary disease and diabetes presents to the emergency room with complaints of chest pain. Patient chronically sees Dr. bowling and has already had a CABG in the past. Patient' s troponins were mildly elevated in the emergency room and her serial troponins continue to elevate. Her Actos/metformin was placed on hold. She was gently rehydrated and her Lasix was on hold. She continues to have chest pain but showed no EKG changes. Cardiology was consulted and took her immediately to the Occupational Health Nurse. Patient had a tight 90% lesion in her RCA which was opened with angioplasty but they were unable to cross the lesion with a stent. Patient is currently has a normal ejection fraction of 55%. She is currently on high dose of diuretics. I have made that as needed and cut it down to 40 mg daily. She only needs to take it if she has significant swelling otherwise he will contribute to dehydration. Her medications have been changed to lisinopril. Beta-maya was not added as she has symptomatic bradycardia. Her total cholesterol is 209 with LDL of 142. She was started on Crestor. With respect to her diabetes have changed her medicines and remove the Actos. Her hemoglobin A1c is 7.7. She should be able to be controlled on metformin alone. She is not to restart her metformin until . Patient is mildly anemic and probably needs an outpatient workup for anemia. She will be discharged home today to follow-up with Ms. Liriano who is a nurse practitioner in [place] and Dr. Beaver as follows. Needs to see GI for anemia workup. - Time spent with patient Time with patient DS: Greater than 30 minutes (50 min) Diagnosis - Discharge Diagnosis (1) NSTEMI (non-ST elevated myocardial infarction) Status: Resolved (2) CHF (congestive heart failure) Status: Acute (3) Obstructive sleep apnea Status: Chronic (4) CAD (coronary artery disease) Status: Chronic (5) Diabetes Status: Chronic Specialty Discharge - Follow Up or Referrals Follow up with: Davian Beaver MD [Physician] - 11/22/16 3:00 pm (Follow-up appointment with Dr. Beaver in approximately 2 weeks with CBC, BMP, magnesium and EKG.) Discharge Plan - Discharge Data Disposition: Disch To Home/Self Care Condition at Discharge: Stable Discharge Diet: diabetic diet Activity: resume usual activities as tolerated Hygiene: no restrictions Weight Bearing at Discharge: full weight bearing - Discharge Medications New Aspirin EC Tab 81 mg PO DAILY tablet Lisinopril [Prinivil] 2.5 mg PO DAILY #30 tablet Potassium Chloride Cap/Tab [K Dur] 20 meq PO DAILY PRN #30 tablet PRN Reason: when taking lasix only Rosuvastatin [Crestor] 20 mg PO DAILY #30 tablet metFORMIN [Glucophage] 850 mg PO BID W/MEALS #60 tablet Ticagrelor [Brilinta] 90 mg PO BID #60 tablet Continue Pregabalin [Lyrica] 75 mg PO BID Hydrocodone/Acetaminophen [[place] 10-325 Tablet] 1 each PO TID PRN PRN Reason: Pain Changed Furosemide Tab [Lasix Tab] 40 mg PO QAM PRN #30 PRN Reason: swelling Discontinued Pioglitazone HCl/Metformin HCl [Pioglitazone-Metformin 15-500] 2 each PO BID - Follow Up or Referral Follow Up: Davian Beaver MD [Physician] - 11/22/16 3:00 pm (Follow-up appointment with Dr. Beaver in approximately 2 weeks with CBC, BMP, magnesium and EKG.) bruce, Deandra in [place] [Other] - 1 Week Alexander Ramirez MD [Physician] - 2 Weeks (workup on anemia ) - Forms/Instructions Instructions: Left Heart Catheterization (DC), Heart Healthy Diet (GEN), Coronary Angioplasty, Spd Manager (GEN) Additional Discharge Instructions: 2 liter fluid restriction. avoid foods with salt/sodium, no gatorade, chips, pork, crackers, soups. Please dont take current diabetes medications as it contains actos which gives you swelling. take lasix as needed, but when taking it also take potassium Exam - Constitutional Vitals: Period Temp Pulse Resp BP Sys/[place] Pulse Ox Last 24 Hr 96.6 F-97.7 F 58-68 16-20 140-184/39-81 95-100 General appearance: normal weight, no acute distress - Respiratory Respiratory exam: Present: clear to auscultation bilaterally. Absent: rhonchi, wheezes - Cardiovascular Cardiovascular exam: Present: regular rate and rhythm. Absent: systolic murmur - GI/Abdominal GI/Abdominal exam: Present: normal bowel sounds, soft. Absent: tenderness - Extremities Exam Extremities exam: Present: normal capillary refill, edema Discharge Results Procedures and tests throughout hospitalization: Pending Orders 11/08/16 09:06 Occult Blood, Stool Routine Labs on day of discharge: Labs from last 24 hours 11/08/16 11/08/16 11/08/16 07:50 07:08 07:08 WBC 8.4 RBC 3.04 L Hgb 8.0 L Hct 25.7 L MCV 84.5 L MCH 26 L MCHC 31.1 L RDW 17.2 Plt Count 206 MPV 11.6 Neut % (Auto) 61.5 Lymph % (Auto) 27.1 [place] % (Auto) 7.9 Eos % (Auto) 2.6 Baso % (Auto) 0.4 Neut # (Auto) 5.2 Lymph # (Auto) 2.3 [place] # (Auto) 0.7 Eos # (Auto) 0.2 Baso # (Auto) 0.0 Immature Gran % 0.5 Nucleated RBC % 0.0 Immature Gran # 0.04 Nucleated RBCs # 0.00 Sodium 143 Potassium 4.4 Chloride 110 H Carbon Dioxide 26 Anion Gap 11.4 BUN 15 Creatinine 0.80 GFR Calculation 90 BUN/Creatinine Ratio 18.00 Glucose 111 H POC Glucose 118 H Calculated Osmolality 286.0 Calcium 8.6 Magnesium 2.1 11/07/16 11/07/16 21:11 15:56 WBC RBC Hgb Hct MCV MCH MCHC RDW Plt Count MPV Neut % (Auto) Lymph % (Auto) [place] % (Auto) Eos % (Auto) Baso % (Auto) Neut # (Auto) Lymph # (Auto) [place] # (Auto) Eos # (Auto) Baso # (Auto) Immature Gran % Nucleated RBC % Immature Gran # Nucleated RBCs # Sodium Potassium Chloride Carbon Dioxide Anion Gap BUN Creatinine GFR Calculation BUN/Creatinine Ratio Glucose POC Glucose 230 H 200 H Calculated Osmolality Calcium Magnesium DS: Provider Date of admission: 11/07/16 12:47 Primary care physician: . No PCP Attending physician on admission: Spencer Ireland MD Discharging clinician: Mary Vaca MD
[2016-11-08 12:07] VITALS: BP 132/58
--- NOTE | 2016-11-08 14:55 | Physician Query Form ---
CLICK EDIT DOCUMENT TO SELECT QUERY ANSWER --> OK --> SIGN Martina Cardenas RN, CCDS Certified Clinical Flask Handler W) [phone] (f) [phone] [email or web address] PROVIDERS: Make your selection(s) from the choices in EACH section by typing an "x" and enter comments in the comment section. Please use your independent medical judgment in providing your response. This request does not imply that any particular answer is desired or expected. CLINICAL INDICATORS: (Providers should not edit this section) The medical record indicates that the patient was admitted a NSTEMI, "status post angioplasty", CHF is mentioned on the 8th, EF 55% and the patient was treated with PO Lasix. "Hold metformin/Actos combo patient should not be on Actos due to heart failure" Please provide further specificity regarding CHF. ACUITY: ( x) Chronic ( ) Other: ( ) Clinically unable to determine TYPE: ( ) Systolic (x ) Diastolic ( ) Combined Systolic/Diastolic ( ) Other, please specify: ( ) Clinically unable to determine ( ) The patient does NOT have CHF COMMENTS: Use of terms such as suspected, likely, or probable (associated with a specific diagnosis that is being evaluated, monitored, or treated as if it exists) are acceptable and can be restated in the discharge summary if not ruled out. MTDD
== END 2016-11-08 13:42 | disposition home or self-care (01) | DRG 251 ==
LOC: EDBD → EDUNIT# → N.ED 16:09 → N.EDINP 16:09 → SUATTDRO 17:53 → N.TELEN 18:03
PROVIDERS: ADMIT Internal Medicine; ATTEND Internal Medicine

== ENCOUNTER 2017-04-05 05:32 | Inpatient (IN) ==
[2017-04-03 13:54] LABS: Basophils # 0.1 10*3/uL (0.0-0.2); Basophils % 0.4 % (0.0-0.8); Eosinophils # 1.1 10*3/uL (0.0-0.87); Eosinophils % 7.9 % (0.00-10.9); Hemoglobin 9.6 GM/DL (12.0-16.0); Immature Granulocytes % 0.4 %; Immature Granulocytes Absolute 0.05 #; Lymphocytes # 3.8 10*3/uL (1.4-4.0); Lymphocytes % 26.6 % (21.3-54.2); Mean Corpuscular Hemoglobin 26 PG (27-34); Mean Corpuscular Volume 82.7 FL (87-102); Mean Platelet Volume 11.6 FL (9.6-12.0); Monocytes % 7.2 % (1.7-12.7); Neutrophils # 8.1 10*3/uL (1.4-7.4); Neutrophils % 57.5 % (38.7-73.9); Platelet Count 258 T/CUMM (130-400); Red Blood Count 3.75 MC/CUMM (3.8-5.5); Red Cell Distribution Width 18.3 % (9.3-17.3); White Blood Count 14.1 T/CUMM (4-12)
[2017-04-03 14:12] LABS: Apearance,Urine Slightly Hazy (Clear); Bacteria,Urine Occasional /HPF (Few); Bilirubin,Urine Negative (Negative); Blood, Urine Negative (Negative); Glucose,Urine (UA) Negative (Negative); Hyaline Casts,Urine 11 /LPF (0-3); Ketones,Urine Negative (Negative); Mucus,Urine Occasional /LPF (Occasional); Nitrite,Urine Negative (Negative); Protein,Urine Negative; RBC,Urine 1 /HPF (0-4); Squamous Epithelial Cell,Urine Occasional /HPF (0-10); Urine Color Yellow (Yellow); Urine Specific Gravity 1.009 (1.001-1.035); Urine Urobilinogen < 2.0 EU/DL (0.2-1.0); WBC,Urine 1 /HPF (0-6)
[2017-04-03 14:19] LABS: Calcium 9.2 MG/DL (8.5-10.1); Osmolality,Calculated 277.8 MOS/KG (273-304); Potassium 4.1 MMOL/L (3.5-5.1)
--- NOTE | 2017-04-03 14:20 | Order Completion Report ---
See report scanned to EMR
--- NOTE | 2017-04-03 14:36 | XRay Report ---
2 view chest 04/03/2017 216 PM Indication: Preoperative evaluation Comparison: November 07, 2016 Findings: Cardiomediastinal contours are stable with sternotomy wires and midline with evidence of prior coronary artery bypass graft. Chronic interstitial changes.. No acute osseous abnormalities. Visualized upper abdomen demonstrates no acute pathology. Impression: No acute cardiopulmonary findings PROCEDURE INTERPRETED AT [facility] DEPARTMENT OF RADIOLOGY Final Report Signed by: Massimo Be MD
[2017-04-05] MEDS ORDERED: LACTATED RINGERS 1,000 ML IV SCH ×2 (06:00→09:30)
[2017-04-05] MEDS ORDERED: DIAZEPAM 5 MG TABLET PO ONE (06:38)
[2017-04-05] MEDS ORDERED: PANTOPRAZOLE 40 MG TABLET PO ONE (06:38)
[2017-04-05] MEDS ORDERED: BACITRACIN OINT 0.9 GM PACK TOP ONE (06:48)
--- NOTE | 2017-04-05 06:51 | History and Physical Update ---
History and Physical Update - History and Physical H&P was reviewed, the patient examined and there: are no changes in the patients condition since last H&P was completed.
[2017-04-05] MEDS ORDERED: PROPOFOL 200 MG/20 ML VIAL IV ONE (07:04)
[2017-04-05] MEDS ORDERED: LIDOCAINE 2% 5 ML VIAL ONE (07:04)
[2017-04-05] MEDS ORDERED: ONDANSETRON 4 MG/2 ML VIAL ONE (07:04)
[2017-04-05] MEDS ORDERED: ROPIVACAINE 0.5% 30 ML VIAL ONE ×2 (08:55→09:00)
--- NOTE | 2017-04-05 09:05 | XRay Report ---
XR ankle 2V LT Indication: ORIF left ankle Comparison: Left ankle x-ray April 02, 2017 Technique: 3 intraoperative fluoroscopic frontal views of the left ankle including frontal and lateral projections. Fluoroscopy time 8 seconds. Findings: Interval plate and screw fixation of the distal tibia. Interval placement of an orthopedic screw, 2 K wires, and cerclage wire within the distal fibula. Alignment appears near-anatomic. Skin gurjit noted medially. Soft tissue swelling noted. IMPRESSION: As above. PROCEDURE INTERPRETED AT [facility] DEPARTMENT OF RADIOLOGY Final Report Signed by: Dr Eric Schofield
[2017-04-05] MEDS ORDERED: MORPHINE 2 MG/1 ML SYRINGE IV PRN ×2 (09:11)
[2017-04-05] MEDS ORDERED: MAGNESIUM HYDROXIDE SUSP 30 ML UDCUP PO PRN (09:11)
[2017-04-05] MEDS ORDERED: ACETAMINOPHEN 325 MG TABLET PO PRN (09:11)
[2017-04-05] MEDS ORDERED: KETOROLAC 30 MG/1 ML VIAL IV PRN (09:11)
[2017-04-05] MEDS ORDERED: ONDANSETRON 4 MG/2 ML VIAL IV PRN (09:11)
[2017-04-05] MEDS ORDERED: FUROSEMIDE 80 MG TABLET PO PRN (09:16)
[2017-04-05] MEDS ORDERED: GLUCAGON 1 MG VIAL IM PRN (09:17)
[2017-04-05] MEDS ORDERED: DEXTROSE 50% 25 GM/50 ML VIAL IV PRN (09:17)
--- NOTE | 2017-04-05 09:22 | Operative Note ---
Date of procedure: 04/05/17 Procedure: DIAGNOSIS: Left displaced bimalleolar fracture PROCEDURE: Left bimalleolar open reduction and fixation (CPT #83933) SURGEON: Venkata ANESTHESIA: General with postoperative popliteal block PROCEDURE and FINDINGS: After adequate anesthesia was induced, the limb was prepped and draped in the usual sterile fashion. Limb was exsanguinated with Esmarch. Tourniquet was inflated to 300 mmHg. The medial malleolus was exposed through a medial incision. Neurovascular structures were protected. Fracture was identified and reduced. Medial malleolus was secured with a 6 hole antiglide plate. 2 cortical screws were placed proximally. Distally 3 4.0 mm partially threaded cancellous screws were used to fix the medial malleolus fracture. An additional 4.0 mm partially- threaded cancellous screw was placed anteriorly with a washer. Pins and then followed with 4.0 mm cannulated partially threaded screws. A lateral approach to the distal fibula was made. Skin, subcutaneous tissue, and periosteum was incised longitudinally. Fracture was exposed and reduced. Because of the distal nature of the fracture and her osteoporosis, the fracture was fixed with two 2.0 mm K wires and a tension band. Distally the tension band was placed underneath the peroneal tendon sheath and proximally was wrapped around a 3.5 mm cortical screw. The pins were bent and cut. Wounds were irrigated. Periosteum was approximated with 0 Vicryl figure-of- eight sutures. Subcutaneous tissues were closed with 3-0 Vicryl interrupted buried, sutures. Skin was approximated with gurjit. Triple antibiotic ointment was applied. Sterile dressing and short leg splint was applied. Tourniquet was released for an approximate time of 68 minutes. Image intensification was used throughout the procedure. Surgeon / Physician: Erasmo Hastings Jr. Results - Labs CBC & BMP: 04/03/17 13:46 04/03/17 13:46 Discharge Plan - Discharge Medications No Action Pregabalin [Lyrica] 75 mg PO BID Hydrocodone/Acetaminophen [[place] 10-325 Tablet] 1 each PO TID PRN PRN Reason: Pain metFORMIN [Glucophage] 850 mg PO BID W/MEALS #60 tablet Furosemide Tab [Lasix Tab] 80 mg PO DAILY PRN PRN Reason: FLUID - Follow Up or Referral - Forms/Instructions
[2017-04-05] MEDS ORDERED: ACETAMINOPHEN 1,000 MG/100 ML VIAL IV ONE (09:27)
[2017-04-05] MEDS ORDERED: fentaNYL 100 MCG/2 ML VIAL ONE (09:27)
[2017-04-05] MEDS ORDERED: MIDAZOLAM 2 MG/2 ML VIAL ONE (09:27)
[2017-04-05] MEDS ORDERED: SEVOFLURANE 1 UNIT/15 MINUTE INH ONE (09:27)
[2017-04-05] MEDS ORDERED: INFLUENZA VIRUS VACCINE 0.5 ML SYRINGE IM ONE (10:52)
--- NOTE | 2017-04-05 11:05 | Anesthesia Post-Op ---
Anesthesia Post OP - Post Ansesthetic Evaluation Patient seen in post op: Yes Resp: within normal limits CV: within normal limits Mental: within normal limits Temp: within normal limits [id number]: within normal limits Nausea and Vomiting: within normal limits Pain: within normal limits
[2017-04-05] MEDS: INSULIN LISPRO 100 UNIT/ML SUBCUT SCH ×3 (11:42→21:03)
--- NOTE | 2017-04-05 13:57 | Orthopedic Progress Note ---
Orthopedics - Subjective Interval history: She is comfortable postop. Left lower extremity: Splint is clean, dry and intact. She can flex extend her toes. Sensation to her forefoot is unchanged. Capillary refill is less than 2 seconds. Plan: Continue per protocol. Exam - Constitutional Vitals: Period Temp Pulse Resp BP Sys/[place] Pulse Ox Last 24 Hr 97.0 F-98.4 F 70-88 12-20 143-188/66-82 96-100 Results - Labs CBC & BMP: 04/03/17 13:46 04/03/17 13:46 Specialty Discharge - Follow Up or Referrals Follow up with: Erasmo Hastings Jr., MD [Physician] -
[2017-04-05] MEDS: ceFAZolin 2,000 MG in SODIUM CHLORIDE 0.9% 100 ML IV SCH ×2 (15:25→23:04)
[2017-04-05] MEDS: PREGABALIN 75 MG CAPSULE PO SCH (20:54)
[2017-04-06] MEDS ORDERED: FONDAPARINUX 2.5 MG/0.5 ML SYRINGE SUBCUT SCH (03:13)
[2017-04-06 06:28] LABS: Basophils % 0.4 % (0.0-0.8); Eosinophils # 0.9 10*3/uL (0.0-0.87); Hematocrit 24.5 VOL% (35.7-47.0); Immature Granulocytes % 0.4 %; Immature Granulocytes Absolute 0.04 #; Lymphocytes # 2.5 10*3/uL (1.4-4.0); Lymphocytes % 28.3 % (21.3-54.2); Mean Corpuscular HGB Conc 31.4 GM/DL (32-36); Mean Corpuscular Hemoglobin 26 PG (27-34); Mean Corpuscular Volume 82.5 FL (87-102); Mean Platelet Volume 11.7 FL (9.6-12.0); Monocytes # 0.7 10*3/uL (0.11-0.8); Monocytes % 8.2 % (1.7-12.7); Neutrophils # 4.7 10*3/uL (1.4-7.4); Neutrophils % 52.7 % (38.7-73.9); Platelet Count 214 T/CUMM (130-400); Red Cell Distribution Width 18.5 % (9.3-17.3)
[2017-04-06 06:38] LABS: Hemoglobin 7.7 GM/DL (12.0-16.0); Red Blood Count 2.97 MC/CUMM (3.8-5.5); White Blood Count 8.9 T/CUMM (4-12)
[2017-04-06 07:21] LABS: Calcium 8.4 MG/DL (8.5-10.1)
[2017-04-06] MEDS: INSULIN LISPRO 100 UNIT/ML SUBCUT SCH (07:41)
[2017-04-06 07:44] VITALS: BP 130/52
[2017-04-06] MEDS: PREGABALIN 75 MG CAPSULE PO SCH (08:25)
--- NOTE | 2017-04-06 08:33 | Discharge Summary ---
Hospital Course - Hospital Course Hospital Course: Ms. Santiago was admitted after undergoing an uncomplicated open reduction internal fixation of her left ankle. She received perioperative antimicrobial DVT prophylaxis. She received physical therapy. She was discharged home in stable condition. She has walker and a wheelchair at home. Exam shows her splint is clean, dry and intact. Her left lower extremity is neurovascularly unchanged. Specialty Discharge - Follow Up or Referrals Follow up with: Erasmo Hastings Jr., MD [Physician] - 04/18/17 9:20 am Discharge Plan - Discharge Data Disposition: Disch To Home/Self Care Condition at Discharge: Stable Discharge Diet: diabetic diet Activity: ambulate only with your walker Hygiene: keep area(s) dry Weight Bearing at Discharge: non-weight bearing Driving: not until seen by doctor - Discharge Medications Continue Pregabalin [Lyrica] 75 mg PO BID metFORMIN [Glucophage] 850 mg PO BID W/MEALS #60 tablet busPIRone [Buspar] 5 mg PO TID Docusate/Senna 50-8.6 [Senokot S] 1 tablet PO DAILY Oxybutynin Chloride [Oxybutynin Chloride ER] 10 mg PO DAILY Esomeprazole Magnesium [Esomeprazole] 40 mg PO DAILY Insulin Glargine [Lantus] 15 unit SUBCUT BEDTIME Furosemide Tab [Lasix Tab] 80 mg PO DAILY PRN PRN Reason: FLUID Tizanidine HCl 4 mg PO Q8H PRN PRN Reason: Muscle Spasm Discontinued Hydrocodone/Acetaminophen [[place] 10-325 Tablet] 1 each PO TID PRN PRN Reason: Pain - Follow Up or Referral Follow Up: Erasmo Hastings Jr., MD [Physician] - 04/18/17 9:20 am - Forms/Instructions Instructions: Open Reduction and Internal Fixation of an Ankle Fracture (DC) Additional Discharge Instructions: Follow-up appointment in 10-14 days. Keep splint clean, dry and intact. Strict nonweightbearing left lower extremity. Encourage elevation 6 inches over heart level. Prescription for [place] 7.5 with 30 tablets was written. Exam - Constitutional Vitals: Period Temp Pulse Resp BP Sys/[place] Pulse Ox Last 24 Hr 97.0 F-98.4 F 67-88 12-20 121-188/52-83 90-100 Discharge Results Labs on day of discharge: Labs from last 24 hours 04/06/17 04/06/17 04/06/17 06:48 06:12 06:12 WBC 8.9 D RBC 2.97 L D Hgb 7.7 L Hct 24.5 L MCV 82.5 L MCH 26 L MCHC 31.4 L RDW 18.5 H Plt Count 214 MPV 11.7 Neut % (Auto) 52.7 Lymph % (Auto) 28.3 [place] % (Auto) 8.2 Eos % (Auto) 10.0 Baso % (Auto) 0.4 Neut # (Auto) 4.7 Lymph # (Auto) 2.5 [place] # (Auto) 0.7 Eos # (Auto) 0.9 H Baso # (Auto) 0.0 Immature Gran % 0.4 Nucleated RBC % 0.0 Immature Gran # 0.04 Nucleated RBCs # 0.00 Immature Plt Fraction 0.0 Sodium 143 Potassium 4.0 Chloride 109 H Carbon Dioxide 29 Anion Gap 9.0 BUN 17 Creatinine 0.80 GFR Calculation 93 BUN/Creatinine Ratio 21.00 H Glucose 153 H POC Glucose 184 H Calculated Osmolality 289.0 Calcium 8.4 L 04/05/17 04/05/17 04/05/17 20:54 16:31 10:59 WBC RBC Hgb Hct MCV MCH MCHC RDW Plt Count MPV Neut % (Auto) Lymph % (Auto) [place] % (Auto) Eos % (Auto) Baso % (Auto) Neut # (Auto) Lymph # (Auto) [place] # (Auto) Eos # (Auto) Baso # (Auto) Immature Gran % Nucleated RBC % Immature Gran # Nucleated RBCs # Immature Plt Fraction Sodium Potassium Chloride Carbon Dioxide Anion Gap BUN Creatinine GFR Calculation BUN/Creatinine Ratio Glucose POC Glucose 175 H 148 H 165 H Calculated Osmolality Calcium DS: Provider Date of admission: 04/05/17 09:11 Primary care physician: Ursula Bautista NP Attending physician on admission: Erasmo Hastings Jr., Consults: 04/05/17 09:11 Consult to Physical Therapy [CONS] Routine Reason for Physical Therapy: Evaluate and Treat Start Therapy: Today Consult Comment: rell kerr 04/05/17 10:47 Consult to Pastoral Services [CONS] Routine Comment: Pastoral Screen: 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
[2017-04-06] MEDS ORDERED: metFORMIN 850 MG TABLET PO SCH (09:16)
== END 2017-04-06 10:35 | disposition home or self-care (01) | DRG 494 ==
LOC: N.OR 05:32 → N.SDSINP 05:35 → N.3E 09:11
PROVIDERS: ADMIT Orthopaedic Surgery; ATTEND Orthopaedic Surgery

== ENCOUNTER 2018-11-28 05:16 | Inpatient (IN) ==
[2018-11-21 13:29] LABS: Basophils # 0.1 10*3/uL (0.0-0.2); Basophils % 0.9 % (0.0-0.8); Eosinophils # 1.7 10*3/uL (0.0-0.87); Eosinophils % 15.9 % (0.00-10.9); Hematocrit 33.7 VOL% (35.7-47.0); Hemoglobin 10.5 GM/DL (12.0-16.0); Immature Granulocytes % 0.5 %; Immature Granulocytes Absolute 0.05 #; Lymphocytes # 3.3 10*3/uL (1.4-4.0); Lymphocytes % 31.5 % (21.3-54.2); Mean Corpuscular HGB Conc 31.2 GM/DL (32-36); Mean Corpuscular Volume 95.2 FL (87-102); Mean Platelet Volume 11.6 FL (9.6-12.0); Monocytes % 6.3 % (1.7-12.7); Neutrophils % 44.9 % (38.7-73.9); Platelet Count 207 T/CUMM (130-400); Red Blood Count 3.54 MC/CUMM (3.8-5.5); White Blood Count 10.4 T/CUMM (4-12)
[2018-11-21 13:50] LABS: Calcium 9.1 MG/DL (8.5-10.1); Osmolality,Calculated 286.5 MOS/KG (273-304)
[2018-11-21 14:00] LABS: Apearance,Urine CLEAR (Clear); Bilirubin,Urine Negative (Negative); Blood, Urine Negative (Negative); Glucose,Urine (UA) Negative (Negative); Hyaline Casts,Urine 5 /LPF (0-3); Ketones,Urine Negative (Negative); Mucus,Urine Occasional /LPF (Occasional); Nitrite,Urine Negative (Negative); Protein,Urine Negative; RBC,Urine 4 /HPF (0-4); Squamous Epithelial Cell,Urine Occasional /HPF (0-10); Urine Color Yellow (Yellow); Urine Specific Gravity 1.011 (1.001-1.035); Urine Urobilinogen < 2.0 EU/DL (0.2-1.0); WBC,Urine 4 /HPF (0-6)
[2018-11-21 14:09] LABS: Eosinophils 16 % (0-10); Lymphocytes 35 % (20-55); Segmented Neutrophils 47 % (50-85); Total Cells Counted 100
[2018-11-21 14:10] LABS: Anisocytosis 1+; Hypochromasia 1+; Platelet Estimate Adequate
[2018-11-28] MEDS ORDERED: ceFAZolin 2,000 MG in PREMIX 1 EACH IV ONE (06:30)
[2018-11-28] MEDS ORDERED: FAMOTIDINE 20 MG TABLET PO ONE (06:52)
[2018-11-28] MEDS ORDERED: LORazepam 1 MG TABLET PO ONE (06:52)
[2018-11-28] MEDS ORDERED: LACTATED RINGERS 1,000 ML IV SCH (07:00)
[2018-11-28] MEDS ORDERED: ROPIVACAINE 0.5% 30 ML VIAL ONE (07:13)
[2018-11-28] MEDS ORDERED: DEXAMETHASONE 4 MG/1 ML VIAL ONE ×2 (07:14→12:21)
[2018-11-28] MEDS ORDERED: MIDAZOLAM 2 MG/2 ML VIAL ONE (07:25)
[2018-11-28] MEDS ORDERED: fentaNYL 100 MCG/2 ML VIAL ONE ×2 (07:26→12:21)
[2018-11-28] MEDS ORDERED: BACITRACIN OINT 0.9 GM PACK TOP ONE ×2 (08:11→08:12)
[2018-11-28] MEDS ORDERED: GENTAMICIN 80 MG/2 ML VIAL ONE (08:31)
[2018-11-28] MEDS ORDERED: ALBUTEROL 2.5 MG/3 ML NEB RESP TX PRN (12:02)
[2018-11-28] MEDS ORDERED: tiZANidine 4 MG TABLET PO PRN (12:02)
[2018-11-28] MEDS ORDERED: MORPHINE 4 MG/1 ML VIAL IV PRN (12:04)
[2018-11-28] MEDS ORDERED: DEXTROSE 50% 25 GM/50 ML VIAL IV PRN (12:04)
[2018-11-28] MEDS ORDERED: ONDANSETRON 4 MG/2 ML VIAL IV PRN (12:04)
[2018-11-28] MEDS ORDERED: GLUCAGON 1 MG VIAL IM PRN (12:04)
[2018-11-28] MEDS ORDERED: MAGNESIUM HYDROXIDE SUSP 30 ML UDCUP PO PRN (12:04)
[2018-11-28] MEDS ORDERED: diphenhydrAMINE CAP 25 MG CAPSULE PO PRN (12:04)
[2018-11-28] MEDS ORDERED: SEVOFLURANE 1 UNIT/15 MINUTE INH ONE (12:21)
[2018-11-28] MEDS ORDERED: GLYCOPYRROLATE 0.4 MG/2 ML VIAL ONE (12:21)
[2018-11-28] MEDS ORDERED: ETOMIDATE 40 MG/20 ML VIAL IV ONE (12:21)
[2018-11-28] MEDS ORDERED: PROPOFOL 200 MG/20 ML VIAL IV ONE (12:21)
[2018-11-28] MEDS ORDERED: ONDANSETRON 4 MG/2 ML VIAL ONE (12:21)
[2018-11-28] MEDS ORDERED: ePHEDrine 50 MG/ML AMP ONE (12:21)
[2018-11-28] MEDS ORDERED: NEOSTIGMINE 10 MG/10 ML VIAL ONE (12:22)
[2018-11-28] MEDS ORDERED: ACETAMINOPHEN 1,000 MG/100 ML VIAL IV ONE (12:22)
[2018-11-28] MEDS ORDERED: ROCURONIUM 100 MG/10 ML VIAL IV ONE (12:22)
[2018-11-28] MEDS ORDERED: LACTATED RINGERS 1,000 ML IV ONE (12:22)
[2018-11-28] MEDS: MORPHINE 4 MG/1 ML VIAL IV PRN ×2 (14:39→18:41)
[2018-11-28] MEDS: PREGABALIN 75 MG CAPSULE PO SCH ×2 (14:40→21:23)
[2018-11-28] MEDS: INSULIN LISPRO 100 UNIT/ML SUBCUT SCH ×2 (16:09→21:17)
[2018-11-28] MEDS: ceFAZolin 2,000 MG in PREMIX 1 EACH IV SCH (17:33)
[2018-11-28] MEDS ORDERED: PROMETHAZINE 25 MG/1 ML VIAL IM PRN (19:18)
[2018-11-28] MEDS ORDERED: MEPERIDINE 50 MG/1 ML VIAL IM PRN (19:20)
[2018-11-28] MEDS ORDERED: INSULIN GLARGINE 100 UNIT/ML SUBCUT SCH (21:00)
[2018-11-28] MEDS: metFORMIN 500 MG TABLET PO SCH (21:16)
[2018-11-28] MEDS: busPIRone 15 MG TABLET PO SCH (21:16)
[2018-11-28] MEDS: MEPERIDINE 25 MG/1 ML VIAL IM PRN (21:18)
[2018-11-28] MEDS: LACTATED RINGERS 1,000 ML IV SCH (21:25)
[2018-11-28] MEDS ORDERED: OXYBUTYNIN XL 10 MG TABLET PO SCH (22:00)
[2018-11-29] MEDS: ceFAZolin 2,000 MG in PREMIX 1 EACH IV SCH (02:38)
[2018-11-29 04:31] LABS: Basophils % 0.2 % (0.0-0.8); Eosinophils % 0.1 % (0.00-10.9); Hematocrit 28.5 VOL% (35.7-47.0); Hemoglobin 8.7 GM/DL (12.0-16.0); Immature Granulocytes % 0.9 %; Immature Granulocytes Absolute 0.12 #; Lymphocytes # 2.1 10*3/uL (1.4-4.0); Lymphocytes % 15.5 % (21.3-54.2); Mean Corpuscular HGB Conc 30.5 GM/DL (32-36); Mean Corpuscular Volume 95.3 FL (87-102); Monocytes % 6.9 % (1.7-12.7); Neutrophils % 76.4 % (38.7-73.9); Platelet Count 186 T/CUMM (130-400); Red Blood Count 2.99 MC/CUMM (3.8-5.5); Red Cell Distribution Width 14.6 % (9.3-17.3); White Blood Count 13.3 T/CUMM (4-12)
[2018-11-29 04:51] LABS: Calcium 8.8 MG/DL (8.5-10.1); Osmolality,Calculated 287.3 MOS/KG (273-304)
[2018-11-29] MEDS: LACTATED RINGERS 1,000 ML IV SCH (05:01)
[2018-11-29 07:57] VITALS: BP 144/64
[2018-11-29] MEDS: PREGABALIN 75 MG CAPSULE PO SCH (08:25)
[2018-11-29] MEDS: busPIRone 15 MG TABLET PO SCH (08:25)
[2018-11-29] MEDS: metFORMIN 500 MG TABLET PO SCH (08:26)
[2018-11-29] MEDS: INSULIN LISPRO 100 UNIT/ML SUBCUT SCH (08:30)
[2018-11-29] MEDS ORDERED: ASPIRIN EC 81 MG TABLET PO SCH (09:00)
[2018-11-29] MEDS ORDERED: DOCUSATE SODIUM 100 MG CAPSULE PO SCH (09:00)
[2018-11-29] MEDS ORDERED: FUROSEMIDE 80 MG TABLET PO SCH (09:00)
[2018-11-29] MEDS ORDERED: PANTOPRAZOLE 40 MG TABLET PO SCH (09:00)
[2018-11-29] MEDS ORDERED: CLOPIDOGREL 75 MG TABLET PO SCH (09:00)
[2018-11-29] MEDS: MEPERIDINE 25 MG/1 ML VIAL IM PRN (10:20)
== END 2018-11-29 13:08 | disposition home health service (06) | DRG 493 ==
LOC: N.OR 05:16 → N.SDSINP 05:16 → N.3E 13:06
PROVIDERS: ADMIT Orthopaedic Surgery; ATTEND Orthopaedic Surgery

== ENCOUNTER 2020-03-05 05:45 | Inpatient (IN) ==
[2020-02-28 11:55] LABS: Basophils # 0.1 10*3/uL (0.0-0.2); Eosinophils # 0.7 10*3/uL (0.0-0.87); Eosinophils % 8.6 % (0.00-10.9); Hematocrit 33.5 VOL% (35.7-47.0); Hemoglobin 10.5 GM/DL (12.0-16.0); Immature Granulocytes % 0.5 %; Immature Granulocytes Absolute 0.04 #; Lymphocytes # 2.5 10*3/uL (1.4-4.0); Lymphocytes % 29.6 % (21.3-54.2); Mean Corpuscular HGB Conc 31.3 GM/DL (32-36); Mean Corpuscular Volume 94.4 FL (87-102); Mean Platelet Volume 12.2 FL (9.6-12.0); Monocytes % 7.3 % (1.7-12.7); Platelet Count 204 T/CUMM (130-400); Red Blood Count 3.55 MC/CUMM (3.8-5.5); Red Cell Distribution Width 13.2 % (9.3-17.3); White Blood Count 8.4 T/CUMM (4-12)
[2020-02-28 12:01] LABS: Apearance,Urine CLEAR (Clear); Bacteria,Urine Occasional /HPF (Few); Bilirubin,Urine Negative (Negative); Blood, Urine Negative (Negative); Glucose,Urine (UA) Negative (Negative); Ketones,Urine Negative (Negative); Mucus,Urine Occasional /LPF (Occasional); Nitrite,Urine Negative (Negative); Protein,Urine Negative; RBC,Urine 1 /HPF (0-4); Squamous Epithelial Cell,Urine Occasional /HPF (0-10); Urine Color Colorless (Yellow); Urine Specific Gravity 1.008 (1.001-1.035); Urine Urobilinogen < 2.0 EU/DL (0.2-1.0); WBC,Urine 2 /HPF (0-6)
[2020-02-28 12:19] LABS: Calcium 9.8 MG/DL (8.5-10.1); Osmolality,Calculated 291.1 MOS/KG (273-304)
[2020-03-05] MEDS ORDERED: ceFAZolin 2,000 MG in PREMIX 1 EACH IV ONE (06:30)
[2020-03-05] MEDS ORDERED: FAMOTIDINE 20 MG TABLET PO ONE (07:03)
[2020-03-05] MEDS ORDERED: FAMOTIDINE 20 MG TABLET ONE (07:26)
[2020-03-05] MEDS ORDERED: ROPIVACAINE 0.5% 30 ML VIAL ONE (07:35)
[2020-03-05] MEDS ORDERED: LIDOCAINE 1% 5 ML VIAL ONE (07:35)
[2020-03-05] MEDS ORDERED: BACITRACIN OINT 0.9 GM PACK TOP ONE (07:57)
[2020-03-05] MEDS ORDERED: BUPIVACAINE 0.5% 50 ML VIAL ONE (07:57)
[2020-03-05] MEDS ORDERED: LIDOCAINE 2%/EPI 20 ML VIAL ONE (07:57)
[2020-03-05] MEDS ORDERED: GENTAMICIN 80 MG/2 ML VIAL ONE (08:40)
[2020-03-05] MEDS ORDERED: tiZANidine 4 MG TABLET PO PRN (09:07)
[2020-03-05] MEDS ORDERED: ALBUTEROL 2.5 MG/3 ML NEB RESP TX PRN (09:07)
[2020-03-05] MEDS ORDERED: DEXTROSE 50% 25 GM/50 ML VIAL IV PRN (09:10)
[2020-03-05] MEDS ORDERED: GLUCAGON 1 MG VIAL IM PRN (09:10)
[2020-03-05] MEDS ORDERED: MORPHINE 4 MG/1 ML VIAL IV PRN (09:11)
[2020-03-05] MEDS ORDERED: MAGNESIUM HYDROXIDE SUSP 30 ML UDCUP PO PRN (09:11)
[2020-03-05] MEDS ORDERED: diphenhydrAMINE CAP 25 MG CAPSULE PO PRN (09:11)
[2020-03-05] MEDS ORDERED: KETOROLAC 15 MG/1 ML VIAL IV PRN (09:11)
[2020-03-05] MEDS ORDERED: ONDANSETRON 4 MG/2 ML VIAL IV PRN ×2 (09:11→12:04)
[2020-03-05] MEDS: LACTATED RINGERS 1,000 ML IV SCH ×4 (10:20→21:02)
[2020-03-05] MEDS ORDERED: propofoL 200 MG/20 ML VIAL IV ONE (11:44)
[2020-03-05] MEDS ORDERED: DEXAMETHASONE 4 MG/1 ML VIAL ONE (11:45)
[2020-03-05] MEDS ORDERED: ACETAMINOPHEN 1,000 MG/100 ML VIAL IV ONE (11:45)
[2020-03-05] MEDS ORDERED: ROCURONIUM 100 MG/10 ML VIAL IV ONE (11:45)
[2020-03-05] MEDS ORDERED: SEVOFLURANE 1 UNIT/15 MINUTE INH ONE (11:45)
[2020-03-05] MEDS ORDERED: fentaNYL 250 MCG/5 ML VIAL ONE (11:45)
[2020-03-05] MEDS ORDERED: ePHEDrine 50 MG/ML VIAL ONE (11:45)
[2020-03-05] MEDS ORDERED: MIDAZOLAM 2 MG/2 ML VIAL ONE (11:45)
[2020-03-05] MEDS ORDERED: LIDOCAINE 2% 5 ML VIAL ONE (11:45)
[2020-03-05] MEDS ORDERED: PHENYLEPHRINE 1 MG/10 ML SYRINGE IV ONE (11:45)
[2020-03-05] MEDS ORDERED: ONDANSETRON 4 MG/2 ML VIAL ONE (11:45)
[2020-03-05] MEDS ORDERED: LACTATED RINGERS 1,000 ML IV ONE (11:46)
[2020-03-05] MEDS: HYDROmorphone 2 MG/1 ML VIAL IV PRN ×4 (12:06→12:21)
[2020-03-05] MEDS: INSULIN LISPRO 100 UNIT/ML SUBCUT SCH ×3 (12:58→21:03)
[2020-03-05] MEDS: MORPHINE 4 MG/1 ML VIAL IV PRN ×3 (13:32→20:00)
[2020-03-05] MEDS: ceFAZolin 2,000 MG in PREMIX 1 EACH IV SCH ×2 (15:37→23:16)
[2020-03-05] MEDS: PREGABALIN 50 MG CAPSULE PO SCH ×2 (15:37→21:01)
[2020-03-05] MEDS: busPIRone 10 MG TABLET PO SCH (21:00)
[2020-03-05] MEDS ORDERED: INSULIN GLARGINE 100 UNIT/ML SUBCUT SCH (21:00)
[2020-03-06 05:59] LABS: Basophils % 0.4 % (0.0-0.8); Eosinophils % 0.3 % (0.00-10.9); Hemoglobin 8.8 GM/DL (12.0-16.0); Immature Granulocytes % 0.7 %; Immature Granulocytes Absolute 0.07 #; Lymphocytes # 1.9 10*3/uL (1.4-4.0); Mean Corpuscular HGB Conc 31.4 GM/DL (32-36); Mean Platelet Volume 12.1 FL (9.6-12.0); Monocytes % 8.3 % (1.7-12.7); Neutrophils % 72.3 % (38.7-73.9); Platelet Count 173 T/CUMM (130-400); Red Blood Count 2.98 MC/CUMM (3.8-5.5); Red Cell Distribution Width 13.2 % (9.3-17.3); White Blood Count 10.5 T/CUMM (4-12)
[2020-03-06 06:15] LABS: Calcium 9.2 MG/DL (8.5-10.1); Osmolality,Calculated 283.4 MOS/KG (273-304)
[2020-03-06] MEDS ORDERED: FUROSEMIDE 80 MG TABLET PO SCH (09:00)
[2020-03-06] MEDS ORDERED: TAMSULOSIN 0.4 MG CAPSULE PO SCH (09:00)
[2020-03-06] MEDS ORDERED: DOCUSATE SODIUM 100 MG CAPSULE PO SCH (09:00)
[2020-03-06] MEDS ORDERED: PANTOPRAZOLE 40 MG TABLET PO SCH (09:00)
[2020-03-06] MEDS ORDERED: CLOPIDOGREL 75 MG TABLET PO SCH (09:00)
[2020-03-06] MEDS ORDERED: ROSUVASTATIN 10 MG TABLET PO SCH (09:00)
[2020-03-06] MEDS: INSULIN LISPRO 100 UNIT/ML SUBCUT SCH ×2 (09:58→20:03)
[2020-03-06] MEDS: busPIRone 10 MG TABLET PO SCH (10:00)
[2020-03-06] MEDS: PREGABALIN 50 MG CAPSULE PO SCH (10:02)
[2020-03-06 19:43] VITALS: BP 139/78
[2020-03-11] MEDS ORDERED: ERGOCALCIFEROL 50,000 UNIT CAPSULE PO SCH (09:00)
== END 2020-03-06 12:42 | disposition home or self-care (01) | DRG 493 ==
LOC: N.OR 05:45 → N.SDSINP 05:47 → N.3E 12:56
PROVIDERS: ADMIT Orthopaedic Surgery; ATTEND Orthopaedic Surgery

== ENCOUNTER 2020-05-16 20:51 | Inpatient (IN) ==
[2020-05-16] MEDS ORDERED: ACETAMINOPHEN 500 MG TABLET ONE (21:08)
[2020-05-16] MEDS ORDERED: ACETAMINOPHEN 500 MG TABLET PO STA (21:37)
[2020-05-16 21:39] LABS: Basophils % 0.6 % (0.0-0.8); Eosinophils # 1.3 10*3/uL (0.0-0.87); Eosinophils % 19.4 % (0.00-10.9); Hematocrit 30.5 VOL% (35.7-47.0); Hemoglobin 9.4 GM/DL (12.0-16.0); Immature Granulocytes % 0.4 %; Immature Granulocytes Absolute 0.03 #; Lymphocytes # 2.2 10*3/uL (1.4-4.0); Lymphocytes % 32.4 % (21.3-54.2); Mean Corpuscular HGB Conc 30.8 GM/DL (32-36); Mean Corpuscular Volume 91.6 FL (87-102); Mean Platelet Volume 10.8 FL (9.6-12.0); Monocytes % 6.4 % (1.7-12.7); Neutrophils % 40.8 % (38.7-73.9); Platelet Count 156 T/CUMM (130-400); Red Blood Count 3.33 MC/CUMM (3.8-5.5); Red Cell Distribution Width 15.1 % (9.3-17.3); White Blood Count 6.9 T/CUMM (4-12)
[2020-05-16] MEDS ORDERED: cefTRIAXone 1,000 MG in SODIUM CHLORIDE 0.9% 100 ML IV STA (21:41)
[2020-05-16] MEDS ORDERED: DEXAMETHASONE 4 MG/1 ML VIAL IV STA (21:41)
[2020-05-16 21:58] LABS: Alanine Aminotransferase 9 U/L (13-56); Albumin 3.1 G/DL (3.4-5.0); Alkaline Phosphatase 64 U/L (45-117); Aspartate Amino Transferase 11 U/L (0-37); Bilirubin,Total < 0.39 MG/DL (0.2-1.0); Blood Urea Nitrogen 22 MG/DL (7-18); Calcium 8.8 MG/DL (8.5-10.1); Estimated Glom Filtration Rate 50 ML/MIN; Glucose 106 MG/DL (74-106); Osmolality,Calculated 281.4 MOS/KG (273-304); Total Protein 7.4 G/DL (6.4-8.3)
[2020-05-16 22:43] LABS: Atypical Lymphocytes 1+; Band Neutrophils 1 % (0-10); Eosinophils 15 % (0-10); Lymphocytes 28 % (20-55); Segmented Neutrophils 49 % (50-85); Total Cells Counted 100
[2020-05-16 22:44] LABS: Hypochromasia 1+
[2020-05-16 22:45] LABS: Platelet Estimate Normal; Polychromasia Few
[2020-05-16] MEDS ORDERED: hydrALAZINE 20 MG/1 ML VIAL IV PRN (22:58)
[2020-05-16] MEDS ORDERED: ZALEPLON 5 MG CAPSULE PO PRN (22:58)
[2020-05-16] MEDS ORDERED: diphenhydrAMINE CAP 25 MG CAPSULE PO PRN (22:58)
[2020-05-16] MEDS ORDERED: MORPHINE 4 MG/1 ML VIAL IV PRN (22:58)
[2020-05-16] MEDS ORDERED: ONDANSETRON 4 MG/2 ML VIAL IV PRN (22:58)
[2020-05-16] MEDS ORDERED: DEXTROSE 50% 25 GM/50 ML VIAL IV PRN ×2 (22:58)
[2020-05-16] MEDS ORDERED: ALBUTEROL 2.5 MG/3 ML NEB RESP TX PRN (22:58)
[2020-05-16] MEDS ORDERED: GLUCAGON 1 MG VIAL IM PRN ×2 (22:58)
[2020-05-16] MEDS ORDERED: NICOTINE 21 MG/24 HR PATCH TRANSDERM PRN (22:58)
[2020-05-16] MEDS ORDERED: ACETAMINOPHEN 325 MG TABLET PO PRN (22:58)
[2020-05-16] MEDS ORDERED: AZITHROMYCIN INJ 500 MG in SODIUM CHLORIDE 0.9% 250 ML IV SCH (23:30)
[2020-05-17] MEDS: methylPREDNISolone SOD SUC 125 MG/2 ML VIAL IV SCH ×2 (00:10→08:26)
[2020-05-17] MEDS: SODIUM CHLORIDE 0.9% 1,000 ML IV SCH ×3 (01:13→21:14)
[2020-05-17] MEDS: ALBUTEROL/IPRATROPIUM 3 ML NEB RESP TX SCH ×4 (01:58→19:24)
[2020-05-17 04:28] LABS: Basophils % 0.3 % (0.0-0.8); Eosinophils % 0.5 % (0.00-10.9); Hematocrit 31.3 VOL% (35.7-47.0); Hemoglobin 9.5 GM/DL (12.0-16.0); Immature Granulocytes % 0.8 %; Immature Granulocytes Absolute 0.03 #; Lymphocytes # 0.7 10*3/uL (1.4-4.0); Mean Corpuscular HGB Conc 30.4 GM/DL (32-36); Mean Corpuscular Volume 92.3 FL (87-102); Mean Platelet Volume 11.2 FL (9.6-12.0); Monocytes % 0.8 % (1.7-12.7); Neutrophils % 79.6 % (38.7-73.9); Platelet Count 143 T/CUMM (130-400); Red Blood Count 3.39 MC/CUMM (3.8-5.5); White Blood Count 3.7 T/CUMM (4-12)
[2020-05-17 04:59] LABS: Calcium 8.5 MG/DL (8.5-10.1); Osmolality,Calculated 283.7 MOS/KG (273-304)
[2020-05-17] MEDS ORDERED: SODIUM POLYSTYRENE SULFATE 15 GM/60 ML BOTTLE PO STA (06:44)
[2020-05-17] MEDS ORDERED: NITROGLYCERIN SL 0.4 MG TABLET SL PRN (06:47)
[2020-05-17] MEDS: busPIRone 10 MG TABLET PO SCH ×2 (08:26→21:16)
[2020-05-17] MEDS: TAMSULOSIN 0.4 MG CAPSULE PO SCH (08:26)
[2020-05-17] MEDS: INSULIN LISPRO 100 UNIT/ML SUBCUT SCH ×4 (08:27→21:18)
[2020-05-17] MEDS: FUROSEMIDE 80 MG TABLET PO SCH (08:27)
[2020-05-17] MEDS: LEVOTHYROXINE 25 MCG TABLET PO SCH (08:27)
[2020-05-17] MEDS: DOCUSATE SODIUM 100 MG CAPSULE PO SCH ×3 (08:27→21:16)
[2020-05-17] MEDS: PANTOPRAZOLE 40 MG TABLET PO SCH (08:27)
[2020-05-17] MEDS: CLOPIDOGREL 75 MG TABLET PO SCH (08:27)
[2020-05-17] MEDS: ENOXAPARIN 40 MG/0.4 ML SYRINGE SUBCUT SCH (08:27)
[2020-05-17] MEDS: AZITHROMYCIN 250 MG TABLET PO SCH (08:27)
[2020-05-17] MEDS: guaiFENesin/DM ER 600-30 MG TABLET PO PRN ×2 (13:13→21:18)
[2020-05-17] MEDS ORDERED: BENZONATATE 100 MG CAPSULE PO PRN (16:00)
[2020-05-17] MEDS: methylPREDNISolone SOD SUC 40 MG/1 ML VIAL IV SCH (16:38)
[2020-05-17] MEDS ORDERED: cefTRIAXone 1,000 MG in SYRINGE 1 EACH IV SCH (21:00)
[2020-05-17] MEDS ORDERED: INSULIN GLARGINE 100 UNIT/ML SUBCUT SCH (21:00)
[2020-05-18] MEDS: methylPREDNISolone SOD SUC 40 MG/1 ML VIAL IV SCH ×3 (00:30→09:55)
[2020-05-18] MEDS: ALBUTEROL/IPRATROPIUM 3 ML NEB RESP TX SCH ×2 (02:53→07:10)
[2020-05-18 05:45] LABS: Hemoglobin 8.9 GM/DL (12.0-16.0); Immature Granulocytes % 0.7 %; Immature Granulocytes Absolute 0.04 #; Lymphocytes % 17.7 % (21.3-54.2); Mean Corpuscular HGB Conc 30.7 GM/DL (32-36); Mean Corpuscular Volume 91.5 FL (87-102); Mean Platelet Volume 11.2 FL (9.6-12.0); Monocytes % 2.1 % (1.7-12.7); Neutrophils % 79.5 % (38.7-73.9); Platelet Count 159 T/CUMM (130-400); Red Blood Count 3.17 MC/CUMM (3.8-5.5); Red Cell Distribution Width 15.4 % (9.3-17.3); White Blood Count 5.6 T/CUMM (4-12)
[2020-05-18 06:06] LABS: Alanine Aminotransferase < 9 U/L (13-56); Albumin 2.9 G/DL (3.4-5.0); Alkaline Phosphatase 55 U/L (45-117); Aspartate Amino Transferase 8 U/L (0-37); Blood Urea Nitrogen 23 MG/DL (7-18); Estimated Glom Filtration Rate 56 ML/MIN; Glucose 207 MG/DL (74-106); HDL Cholesterol 36 MG/DL (40-60); Risk Ratio 2.61; Total Protein 6.9 G/DL (6.4-8.3); Triglycerides 75 MG/DL (2-150)
[2020-05-18] MEDS ORDERED: ROSUVASTATIN 10 MG TABLET PO SCH (06:47)
[2020-05-18] MEDS ORDERED: BUDESONIDE 0.5 MG/2 ML NEB RESP TX SCH (07:00)
[2020-05-18] MEDS ORDERED: ARFORMOTEROL 15 MCG/2 ML NEB RESP TX SCH (07:00)
[2020-05-18] MEDS ORDERED: INFLUENZA VIRUS VACCINE 0.5 ML SYRINGE IM ONE (09:00)
[2020-05-18] MEDS: busPIRone 10 MG TABLET PO SCH (09:49)
[2020-05-18] MEDS: LEVOTHYROXINE 25 MCG TABLET PO SCH (09:49)
[2020-05-18] MEDS: AZITHROMYCIN 250 MG TABLET PO SCH (09:49)
[2020-05-18] MEDS: FUROSEMIDE 80 MG TABLET PO SCH (09:50)
[2020-05-18] MEDS: DOCUSATE SODIUM 100 MG CAPSULE PO SCH ×2 (09:50→10:05)
[2020-05-18] MEDS: ENOXAPARIN 40 MG/0.4 ML SYRINGE SUBCUT SCH (09:50)
[2020-05-18] MEDS: CLOPIDOGREL 75 MG TABLET PO SCH (09:50)
[2020-05-18] MEDS ORDERED: POTASSIUM PHOSPHATE 30 MMOL in SODIUM CHLORIDE 0.9% 250 ML IV ONE (10:00)
[2020-05-18] MEDS: INSULIN LISPRO 100 UNIT/ML SUBCUT SCH ×2 (10:04→13:14)
[2020-05-18] MEDS: PANTOPRAZOLE 40 MG TABLET PO SCH (10:05)
[2020-05-18] MEDS: TAMSULOSIN 0.4 MG CAPSULE PO SCH (11:45)
[2020-05-18 11:54] VITALS: BP 165/60
[2020-05-18] MEDS ORDERED: LOSARTAN 25 MG TABLET PO SCH (15:00)
[2020-05-19] MEDS ORDERED: ASPIRIN EC 81 MG TABLET PO SCH (09:00)
[2020-05-20] MEDS ORDERED: ERGOCALCIFEROL 50,000 UNIT CAPSULE PO SCH (09:00)
== END 2020-05-18 13:32 | disposition home or self-care (01) | DRG 178 ==
LOC: EDUNIT# → EDBD → N.ED 20:51 → N.EDINP 22:58 → SUATTDRO 22:58 → N.EDINP 05-17 00:02 → N.5E 05-17 00:03
PROVIDERS: ADMIT Internal Medicine; ATTEND Internal Medicine

== ENCOUNTER 2020-09-18 12:39 | Observation (INO) ==
[2020-09-18 13:13] LABS: Basophils % 0.4 % (0.0-0.8); Eosinophils # 0.5 10*3/uL (0.0-0.87); Eosinophils % 5.3 % (0.00-10.9); Hematocrit 25.8 VOL% (35.7-47.0); Hemoglobin 7.8 GM/DL (12.0-16.0); Immature Granulocytes % 0.3 %; Immature Granulocytes Absolute 0.03 #; Lymphocytes # 2.2 10*3/uL (1.4-4.0); Lymphocytes % 22.1 % (21.3-54.2); Mean Corpuscular HGB Conc 30.2 GM/DL (32-36); Mean Corpuscular Volume 89.3 FL (87-102); Mean Platelet Volume 10.7 FL (9.6-12.0); Monocytes % 6.1 % (1.7-12.7); Neutrophils % 65.8 % (38.7-73.9); Platelet Count 308 T/CUMM (130-400); Red Blood Count 2.89 MC/CUMM (3.8-5.5); Red Cell Distribution Width 17.8 % (9.3-17.3); White Blood Count 9.7 T/CUMM (4-12)
[2020-09-18 13:24] LABS: PT Patient Result 10.9 SECS (9.8-11.9)
[2020-09-18 13:34] LABS: Alanine Aminotransferase 33 U/L (13-56); Albumin 2.4 G/DL (3.4-5.0); Alkaline Phosphatase 105 U/L (45-117); Aspartate Amino Transferase 34 U/L (0-37); Bilirubin,Total < 0.39 MG/DL (0.2-1.0); Blood Urea Nitrogen 21 MG/DL (7-18); Calcium 9.6 MG/DL (8.5-10.1); Carbon Dioxide 32 MMOL/L (21-32); Estimated Glom Filtration Rate 45 ML/MIN; Glucose 260 MG/DL (74-106); Osmolality,Calculated 279.2 MOS/KG (273-304); Potassium 4.1 MMOL/L (3.5-5.1); Sodium 134 MMOL/L (136-145); Total Protein 7.4 G/DL (5.0-7.5); Troponin I 0.028 NG/ML (0.00-0.045)
[2020-09-18 13:45] LABS: Bilirubin,Urine Negative (Negative); Blood, Urine Moderate mg/dL (Negative); Glucose,Urine (UA) Negative (Negative); Ketones,Urine Negative (Negative); Nitrite,Urine Negative (Negative); Protein,Urine 100 MG/DL; RBC,Urine 89 /HPF (0-4); Urine Appearance CLOUDY (Clear); Urine Color Yellow (Yellow); Urine Specific Gravity 1.004 (1.001-1.035); Urine Urobilinogen < 2.0 EU/DL (0.2-1.0); WBC,Urine 3062 /HPF (0-6)
[2020-09-18] MEDS ORDERED: SODIUM CHLORIDE 0.9% 1,000 ML IV PRN (13:55)
[2020-09-18] MEDS ORDERED: cefTRIAXone 1,000 MG in SODIUM CHLORIDE 0.9% 100 ML IV STA (13:55)
[2020-09-18] MEDS ORDERED: PANTOPRAZOLE 40 MG VIAL IV STA (13:57)
[2020-09-18] MEDS ORDERED: GLUCAGON 1 MG VIAL IM PRN (14:45)
[2020-09-18] MEDS ORDERED: DEXTROSE 50% 25 GM/50 ML VIAL IV PRN (14:45)
[2020-09-18] MEDS ORDERED: NITROGLYCERIN SL 0.4 MG TABLET SL PRN (15:05)
[2020-09-18 16:39] LABS: Basophils % 0.3 % (0.0-0.8); Eosinophils # 0.4 10*3/uL (0.0-0.87); Eosinophils % 4.7 % (0.00-10.9); Hematocrit 24.3 VOL% (35.7-47.0); Hematocrit 24.5 VOL% (35.7-47.0); Hemoglobin 7.5 GM/DL (12.0-16.0); Hemoglobin 7.6 GM/DL (12.0-16.0); Immature Granulocytes % 0.3 %; Immature Granulocytes Absolute 0.03 #; Lymphocytes % 22.1 % (21.3-54.2); Mean Corpuscular HGB Conc 30.9 GM/DL (32-36); Mean Corpuscular Volume 87.7 FL (87-102); Mean Platelet Volume 10.9 FL (9.6-12.0); Monocytes % 6.4 % (1.7-12.7); Neutrophils % 66.2 % (38.7-73.9); Platelet Count 273 T/CUMM (130-400); Red Blood Count 2.77 MC/CUMM (3.8-5.5); White Blood Count 9.1 T/CUMM (4-12)
[2020-09-18] MEDS: INSULIN LISPRO 100 UNIT/ML SUBCUT SCH ×2 (17:53→20:28)
[2020-09-18 18:09] LABS: Folate 9.3 NG/ML (5.38-24.0); Vitamin B12 1852 PG/ML (211-911)
[2020-09-18 18:29] LABS: Sedimentation Rate-Westergren 129 MM/HR (0-30)
[2020-09-18] MEDS: busPIRone 15 MG TABLET PO SCH (20:27)
[2020-09-18] MEDS: METOPROLOL TARTRATE 25 MG TABLET PO SCH (20:27)
[2020-09-18] MEDS: PANTOPRAZOLE 40 MG TABLET PO SCH (20:27)
[2020-09-18] MEDS: FUROSEMIDE 80 MG TABLET PO SCH (20:27)
[2020-09-18] MEDS ORDERED: ROSUVASTATIN 10 MG TABLET PO SCH (21:00)
[2020-09-18] MEDS ORDERED: INSULIN GLARGINE 100 UNIT/ML SUBCUT SCH (21:00)
[2020-09-19 01:51] LABS: Hematocrit 46.3 VOL% (35.7-47.0)
[2020-09-19 01:56] LABS: Hemoglobin 14.8 GM/DL (12.0-16.0)
[2020-09-19 04:35] LABS: Basophils % 0.6 % (0.0-0.8); Eosinophils # 0.5 10*3/uL (0.0-0.87); Eosinophils % 7.2 % (0.00-10.9); Hematocrit 36.4 VOL% (35.7-47.0); Immature Granulocytes % 0.3 %; Immature Granulocytes Absolute 0.02 #; Lymphocytes # 1.9 10*3/uL (1.4-4.0); Lymphocytes % 29.1 % (21.3-54.2); Mean Corpuscular HGB Conc 31.6 GM/DL (32-36); Mean Corpuscular Volume 87.9 FL (87-102); Mean Platelet Volume 10.7 FL (9.6-12.0); Monocytes % 7.2 % (1.7-12.7); Neutrophils % 55.6 % (38.7-73.9); Platelet Count 195 T/CUMM (130-400); Red Blood Count 4.14 MC/CUMM (3.8-5.5); White Blood Count 6.7 T/CUMM (4-12)
[2020-09-19 04:36] LABS: Hemoglobin 11.5 GM/DL (12.0-16.0)
[2020-09-19 04:54] LABS: Hypochromasia 1+; Microcytosis 1+; Ovalocytes Slight; Platelet Estimate Adequate
[2020-09-19 05:22] LABS: Calcium 9.5 MG/DL (8.5-10.1); Osmolality,Calculated 282.8 MOS/KG (273-304); Potassium 3.4 MMOL/L (3.5-5.1)
[2020-09-19] MEDS ORDERED: LEVOTHYROXINE 25 MCG TABLET PO SCH (06:30)
[2020-09-19] MEDS ORDERED: POTASSIUM CHLORIDE 20 MEQ TABLET PO PRN ×2 (07:50→07:53)
[2020-09-19] MEDS ORDERED: POTASSIUM CHLORIDE RIDER 10 MEQ in PREMIX 1 EACH IV PRN (07:53)
[2020-09-19] MEDS ORDERED: POTASSIUM CHLORIDE RIDER 20 MEQ in PREMIX 1 EACH IV PRN (07:53)
[2020-09-19 08:00] VITALS: BP 140/50
[2020-09-19] MEDS ORDERED: PANTOPRAZOLE 40 MG TABLET PO SCH (09:00)
[2020-09-19] MEDS ORDERED: TAMSULOSIN 0.4 MG CAPSULE PO SCH (09:00)
[2020-09-19] MEDS ORDERED: cefTRIAXone 1,000 MG in SYRINGE 1 EACH IV SCH (09:00)
[2020-09-19] MEDS ORDERED: HEPARIN LOCK FLUSH 500 UNIT/5 ML SYRINGE IV ONE (09:47)
[2020-09-19] MEDS: FUROSEMIDE 80 MG TABLET PO SCH (10:06)
[2020-09-19] MEDS: busPIRone 15 MG TABLET PO SCH (10:06)
[2020-09-19] MEDS: PANTOPRAZOLE 40 MG TABLET PO SCH (10:06)
[2020-09-19] MEDS: METOPROLOL TARTRATE 25 MG TABLET PO SCH (10:07)
[2020-09-19] MEDS: INSULIN LISPRO 100 UNIT/ML SUBCUT SCH (10:07)
== END 2020-09-19 11:30 | disposition home health service (06) ==
LOC: N.ED 12:39 → N.EDINP 12:39 → N.4E 15:47
PROVIDERS: ADMIT Internal Medicine; ATTEND Internal Medicine

== ENCOUNTER 2020-12-01 07:05 | Inpatient (IN) ==
[2020-12-01 08:33] LABS: Basophils # 0.1 10*3/uL (0.0-0.2); Basophils % 0.6 % (0.0-0.8); Eosinophils # 0.8 10*3/uL (0.0-0.87); Eosinophils % 8.3 % (0.00-10.9); Hematocrit 35.7 VOL% (35.7-47.0); Hemoglobin 11.6 GM/DL (12.0-16.0); Immature Granulocytes % 0.4 %; Immature Granulocytes Absolute 0.04 #; Lymphocytes # 2.7 10*3/uL (1.4-4.0); Lymphocytes % 28.7 % (21.3-54.2); Mean Corpuscular HGB Conc 32.5 GM/DL (32-36); Mean Corpuscular Volume 94.9 FL (87-102); Mean Platelet Volume 11.3 FL (9.6-12.0); Monocytes % 6.5 % (1.7-12.7); Neutrophils % 55.5 % (38.7-73.9); Platelet Count 185 T/CUMM (130-400); Red Blood Count 3.76 MC/CUMM (3.8-5.5); Red Cell Distribution Width 16.4 % (9.3-17.3); White Blood Count 9.5 T/CUMM (4-12)
[2020-12-01 08:42] LABS: INR 0.9; PT Patient Result 10.4 SECS (10.5-12.0); Partial Thromboplastin Time 40.4 SECS (23.9-33.8)
[2020-12-01 08:50] LABS: Bilirubin,Urine Negative (Negative); Blood, Urine Moderate mg/dL (Negative); Glucose,Urine (UA) 50 mg/dL (Negative); Ketones,Urine Negative (Negative); Mucus,Urine Occasional /LPF (Occasional); Nitrite,Urine Positive (Negative); Protein,Urine 100 MG/DL; Urine Appearance CLOUDY (Clear); Urine Color Amber (Yellow); Urine Specific Gravity 1.009 (1.001-1.035)
[2020-12-01 08:54] LABS: Albumin 3.1 G/DL (3.4-5.0); Bilirubin,Total 0.4 MG/DL (0.2-1.0); Calcium 8.8 MG/DL (8.5-10.1); Osmolality,Calculated 283.7 MOS/KG (273-304); Potassium 4.1 MMOL/L (3.5-5.1); Total Protein 7.4 G/DL (6.4-8.2)
[2020-12-01] MEDS ORDERED: cefTRIAXone 1,000 MG in SODIUM CHLORIDE 0.9% 100 ML IV STA (09:12)
[2020-12-01] MEDS ORDERED: GLUCAGON 1 MG VIAL IM PRN (09:50)
[2020-12-01] MEDS ORDERED: DEXTROSE 50% 25 GM/50 ML VIAL IV PRN (09:50)
[2020-12-01] MEDS ORDERED: ACETAMINOPHEN 325 MG TABLET PO PRN (09:51)
[2020-12-01] MEDS ORDERED: BISACODYL 5 MG TABLET PO PRN (09:51)
[2020-12-01] MEDS ORDERED: NITROGLYCERIN SL 0.4 MG TABLET SL PRN (09:53)
[2020-12-01] MEDS ORDERED: PHENAZOPYRIDINE 95 MG TABLET PO PRN (09:53)
[2020-12-01] MEDS: cefTRIAXone 1,000 MG in SODIUM CHLORIDE 0.9% 100 ML IV SCH (10:44)
[2020-12-01] MEDS: SODIUM CHLORIDE 0.9% 1,000 ML IV SCH (12:06)
[2020-12-01] MEDS: ENOXAPARIN 40 MG/0.4 ML SYRINGE SUBCUT SCH (12:13)
[2020-12-01] MEDS: INSULIN LISPRO 100 UNIT/ML SUBCUT SCH ×3 (12:26→21:23)
[2020-12-01] MEDS: busPIRone 15 MG TABLET PO SCH ×2 (15:06→21:23)
[2020-12-01] MEDS: PREGABALIN 75 MG CAPSULE PO SCH ×2 (15:06→21:23)
[2020-12-01] MEDS: INSULIN GLARGINE 100 UNIT/ML SUBCUT SCH (21:22)
[2020-12-01] MEDS: METOPROLOL TARTRATE 25 MG TABLET PO SCH (21:23)
[2020-12-01] MEDS: TAMSULOSIN 0.4 MG CAPSULE PO SCH (21:24)
[2020-12-02] MEDS: SODIUM CHLORIDE 0.9% 1,000 ML IV SCH ×2 (00:44→14:17)
[2020-12-02 05:24] LABS: Basophils % 0.5 % (0.0-0.8); Eosinophils # 0.6 10*3/uL (0.0-0.87); Eosinophils % 7.6 % (0.00-10.9); Hematocrit 32.3 VOL% (35.7-47.0); Hemoglobin 10.4 GM/DL (12.0-16.0); Immature Granulocytes % 0.4 %; Immature Granulocytes Absolute 0.03 #; Lymphocytes % 37.4 % (21.3-54.2); Mean Corpuscular HGB Conc 32.2 GM/DL (32-36); Mean Corpuscular Volume 96.1 FL (87-102); Mean Platelet Volume 11.8 FL (9.6-12.0); Monocytes % 7.1 % (1.7-12.7); Platelet Count 174 T/CUMM (130-400); Red Blood Count 3.36 MC/CUMM (3.8-5.5); White Blood Count 7.9 T/CUMM (4-12)
[2020-12-02 05:44] LABS: Calcium 6.9 MG/DL (8.5-10.1); Potassium 3.5 MMOL/L (3.5-5.1); Risk Ratio 4.05
[2020-12-02] MEDS: CALCIUM (CARBONATE)/VITAMIN D 600 MG-400 UNIT TABLET PO SCH (08:52)
[2020-12-02] MEDS: ROSUVASTATIN 10 MG TABLET PO SCH (08:52)
[2020-12-02] MEDS: PREGABALIN 75 MG CAPSULE PO SCH ×3 (08:52→21:56)
[2020-12-02] MEDS: busPIRone 15 MG TABLET PO SCH ×3 (08:52→21:56)
[2020-12-02] MEDS: CYANOCOBALAMIN 500 MCG TABLET PO SCH (08:52)
[2020-12-02] MEDS: CHOLECALCIFEROL 5,000 UNIT TABLET PO SCH (08:52)
[2020-12-02] MEDS: METOPROLOL TARTRATE 25 MG TABLET PO SCH ×2 (08:52→21:56)
[2020-12-02] MEDS: INSULIN LISPRO 100 UNIT/ML SUBCUT SCH ×4 (08:52→21:57)
[2020-12-02] MEDS: LEVOTHYROXINE 25 MCG TABLET PO SCH (08:53)
[2020-12-02] MEDS: PANTOPRAZOLE 40 MG TABLET PO SCH (08:53)
[2020-12-02] MEDS: CLOPIDOGREL 75 MG TABLET PO SCH (08:53)
[2020-12-02] MEDS: ENOXAPARIN 40 MG/0.4 ML SYRINGE SUBCUT SCH (09:16)
[2020-12-02] MEDS: cefTRIAXone 1,000 MG in SODIUM CHLORIDE 0.9% 100 ML IV SCH (09:16)
[2020-12-02] MEDS: INSULIN GLARGINE 100 UNIT/ML SUBCUT SCH (18:13)
[2020-12-02] MEDS: TAMSULOSIN 0.4 MG CAPSULE PO SCH (21:55)
[2020-12-03] MEDS: SODIUM CHLORIDE 0.9% 1,000 ML IV SCH ×2 (03:37→21:29)
[2020-12-03 04:56] LABS: Basophils # 0.1 10*3/uL (0.0-0.2); Basophils % 0.8 % (0.0-0.8); Eosinophils # 0.6 10*3/uL (0.0-0.87); Eosinophils % 8.2 % (0.00-10.9); Hematocrit 31.7 VOL% (35.7-47.0); Hemoglobin 10.4 GM/DL (12.0-16.0); Immature Granulocytes % 0.3 %; Immature Granulocytes Absolute 0.02 #; Lymphocytes # 2.5 10*3/uL (1.4-4.0); Lymphocytes % 33.5 % (21.3-54.2); Mean Corpuscular HGB Conc 32.8 GM/DL (32-36); Mean Corpuscular Volume 94.6 FL (87-102); Monocytes % 7.7 % (1.7-12.7); Neutrophils % 49.5 % (38.7-73.9); Platelet Count 162 T/CUMM (130-400); Red Blood Count 3.35 MC/CUMM (3.8-5.5); White Blood Count 7.4 T/CUMM (4-12)
[2020-12-03 05:22] LABS: Calcium 7.6 MG/DL (8.5-10.1); Potassium 3.6 MMOL/L (3.5-5.1)
[2020-12-03] MEDS: CHOLECALCIFEROL 5,000 UNIT TABLET PO SCH (08:17)
[2020-12-03] MEDS: INSULIN LISPRO 100 UNIT/ML SUBCUT SCH ×4 (08:17→21:25)
[2020-12-03] MEDS: PREGABALIN 75 MG CAPSULE PO SCH ×3 (08:17→21:25)
[2020-12-03] MEDS: PANTOPRAZOLE 40 MG TABLET PO SCH (08:18)
[2020-12-03] MEDS: ROSUVASTATIN 10 MG TABLET PO SCH (08:18)
[2020-12-03] MEDS: LEVOTHYROXINE 25 MCG TABLET PO SCH (08:18)
[2020-12-03] MEDS: METOPROLOL TARTRATE 25 MG TABLET PO SCH ×2 (08:19→21:25)
[2020-12-03] MEDS: CALCIUM (CARBONATE)/VITAMIN D 600 MG-400 UNIT TABLET PO SCH (08:19)
[2020-12-03] MEDS: CYANOCOBALAMIN 500 MCG TABLET PO SCH (08:19)
[2020-12-03] MEDS: CLOPIDOGREL 75 MG TABLET PO SCH (08:19)
[2020-12-03] MEDS: busPIRone 15 MG TABLET PO SCH ×3 (08:20→21:25)
[2020-12-03] MEDS: FUROSEMIDE 80 MG TABLET PO SCH ×2 (09:54→21:26)
[2020-12-03] MEDS: cefTRIAXone 1,000 MG in SODIUM CHLORIDE 0.9% 100 ML IV SCH (10:02)
[2020-12-03] MEDS: ENOXAPARIN 40 MG/0.4 ML SYRINGE SUBCUT SCH (10:31)
[2020-12-03] MEDS: ONDANSETRON 4 MG/2 ML VIAL IV PRN ×2 (16:23→21:25)
[2020-12-03] MEDS ORDERED: INSULIN GLARGINE 100 UNIT/ML SUBCUT SCH (19:00)
[2020-12-03] MEDS: TAMSULOSIN 0.4 MG CAPSULE PO SCH (21:25)
[2020-12-04 07:25] LABS: Basophils # 0.1 10*3/uL (0.0-0.2); Basophils % 0.8 % (0.0-0.8); Eosinophils # 0.7 10*3/uL (0.0-0.87); Eosinophils % 8.7 % (0.00-10.9); Hematocrit 31.4 VOL% (35.7-47.0); Hemoglobin 10.4 GM/DL (12.0-16.0); Immature Granulocytes % 0.4 %; Immature Granulocytes Absolute 0.03 #; Lymphocytes # 3.1 10*3/uL (1.4-4.0); Lymphocytes % 36.8 % (21.3-54.2); Mean Corpuscular HGB Conc 33.1 GM/DL (32-36); Mean Corpuscular Volume 93.5 FL (87-102); Mean Platelet Volume 11.3 FL (9.6-12.0); Monocytes % 5.7 % (1.7-12.7); Neutrophils % 47.6 % (38.7-73.9); Platelet Count 159 T/CUMM (130-400); Red Blood Count 3.36 MC/CUMM (3.8-5.5); Red Cell Distribution Width 15.9 % (9.3-17.3); White Blood Count 8.5 T/CUMM (4-12)
[2020-12-04 07:37] LABS: Calcium 7.7 MG/DL (8.5-10.1); Osmolality,Calculated 287.1 MOS/KG (273-304); Potassium 3.8 MMOL/L (3.5-5.1)
[2020-12-04] MEDS: ENOXAPARIN 40 MG/0.4 ML SYRINGE SUBCUT SCH (10:06)
[2020-12-04] MEDS: CLOPIDOGREL 75 MG TABLET PO SCH (10:06)
[2020-12-04] MEDS: METOPROLOL TARTRATE 25 MG TABLET PO SCH (10:06)
[2020-12-04] MEDS: CYANOCOBALAMIN 500 MCG TABLET PO SCH (10:06)
[2020-12-04] MEDS: ROSUVASTATIN 10 MG TABLET PO SCH (10:07)
[2020-12-04] MEDS: PANTOPRAZOLE 40 MG TABLET PO SCH (10:07)
[2020-12-04] MEDS: CALCIUM (CARBONATE)/VITAMIN D 600 MG-400 UNIT TABLET PO SCH (10:07)
[2020-12-04] MEDS: PREGABALIN 75 MG CAPSULE PO SCH (10:07)
[2020-12-04] MEDS: CHOLECALCIFEROL 5,000 UNIT TABLET PO SCH (10:07)
[2020-12-04] MEDS: FUROSEMIDE 80 MG TABLET PO SCH (10:07)
[2020-12-04] MEDS: busPIRone 15 MG TABLET PO SCH (10:07)
[2020-12-04] MEDS: LEVOTHYROXINE 25 MCG TABLET PO SCH (10:07)
[2020-12-04] MEDS: INSULIN LISPRO 100 UNIT/ML SUBCUT SCH (11:50)
[2020-12-04 11:57] VITALS: BP 149/67
== END 2020-12-04 12:09 | disposition home health service (06) | DRG 689 ==
LOC: N.ED 07:05 → SUATTDRO 09:50 → N.EDINP 09:50 → N.5E 12:09
PROVIDERS: ADMIT Internal Medicine; ATTEND Internal Medicine

== ENCOUNTER 2022-08-16 10:19 | Observation (INO) ==
[2022-08-16] MEDS ORDERED: SODIUM CHLORIDE 0.9% 1,000 ML IV STA (10:48)
[2022-08-16 12:19] LABS: Basophils # 0.1 10*3/uL (0.0-0.2); Basophils % 0.5 % (0.0-0.8); Eosinophils # 0.4 10*3/uL (0.0-0.87); Eosinophils % 2.9 % (0.00-10.9); Hematocrit 39.1 VOL% (35.7-47.0); Hemoglobin 12.9 GM/DL (12.0-16.0); Immature Granulocytes % 0.5 %; Immature Granulocytes Absolute 0.06 #; Lymphocytes # 2.9 10*3/uL (1.4-4.0); Lymphocytes % 23.3 % (21.3-54.2); Mean Corpuscular Volume 94.2 FL (87-102); Monocytes # 0.6 10*3/uL (0.11-0.8); Monocytes % 4.6 % (1.7-12.7); Neutrophils % 68.2 % (38.7-73.9); Platelet Count 152 T/CUMM (130-400); Red Blood Count 4.15 MC/CUMM (3.8-5.5); Red Cell Distribution Width 12.7 % (9.3-17.3); White Blood Count 12.47 T/CUMM (4-12)
[2022-08-16 12:31] LABS: INR 0.9; PT Patient Result 10.1 SECS (10.1-12.1)
[2022-08-16 12:50] LABS: Albumin 3.5 G/DL (3.4-5.0); Bilirubin,Total 0.4 MG/DL (0.20-1.00); Calcium 8.9 MG/DL (8.5-10.1); Osmolality,Calculated 296.1 MOS/KG (273-304); Potassium 5.2 MMOL/L (3.5-5.1); Total Protein 7.3 G/DL (6.4-8.2)
[2022-08-16] MEDS ORDERED: INSULIN REGULAR 100 UNIT/ML IV STA (12:54)
[2022-08-16 13:52] LABS: Squamous Epithelial Cell,Urine Occasional /HPF (0-10)
[2022-08-16 13:56] LABS: Glucose,Urine (UA) >=1000 mg/dL (Negative); Ketones,Urine Trace mg/dL (Negative); Nitrite,Urine Negative (Negative); Protein,Urine Negative (Negative); Urine Appearance Clear (Clear); Urine Color Yellow (Yellow)
[2022-08-16 13:57] LABS: Bilirubin,Urine Negative (Negative); Blood, Urine Negative (Negative); Urine Urobilinogen < 2.0 eU/dL (<2.0)
[2022-08-16] MEDS ORDERED: GLUCAGON 1 MG VIAL IM PRN (15:15)
[2022-08-16] MEDS ORDERED: ONDANSETRON 4 MG/2 ML VIAL IV PRN (15:15)
[2022-08-16] MEDS ORDERED: ACETAMINOPHEN 325 MG TABLET PO PRN (15:15)
[2022-08-16] MEDS ORDERED: DOCUSATE SODIUM 100 MG CAPSULE PO PRN (15:15)
[2022-08-16] MEDS ORDERED: ALBUTEROL/IPRATROPIUM 3 ML NEB RESP TX PRN (15:15)
[2022-08-16] MEDS ORDERED: hydrALAZINE 20 MG/1 ML VIAL IV PRN (15:15)
[2022-08-16] MEDS ORDERED: NITROGLYCERIN SL 0.4 MG TABLET SL PRN (15:23)
[2022-08-16] MEDS ORDERED: SODIUM POLYSTYRENE SULFATE 15 GM/60 ML BOTTLE PO STA (15:24)
[2022-08-16] MEDS ORDERED: DEXTROSE 10% 250 ML BAG IV PRN (15:27)
[2022-08-16] MEDS ORDERED: ENOXAPARIN 40 MG/0.4 ML SYRINGE SUBCUT SCH (15:30)
[2022-08-16] MEDS: LACTATED RINGERS 1,000 ML IV SCH (16:11)
[2022-08-16] MEDS: INSULIN LISPRO 100 UNIT/ML SUBCUT SCH ×2 (16:38→21:15)
[2022-08-16] MEDS ORDERED: TAMSULOSIN 0.4 MG CAPSULE PO SCH (21:00)
[2022-08-16] MEDS: METHENAMINE HIPPURATE 1 GM TABLET PO SCH (21:14)
[2022-08-16] MEDS: busPIRone 15 MG TABLET PO SCH (21:14)
[2022-08-16] MEDS: MENTHOL/ZINC OXIDE OINT 71 GM JAR TOP SCH (21:15)
[2022-08-16] MEDS: PREGABALIN 75 MG CAPSULE PO SCH (22:58)
[2022-08-17 05:12] LABS: Basophils % 0.5 % (0.0-0.8); Eosinophils # 0.7 10*3/uL (0.0-0.87); Eosinophils % 7.5 % (0.00-10.9); Hematocrit 33.2 VOL% (35.7-47.0); Hemoglobin 10.9 GM/DL (12.0-16.0); Immature Granulocytes % 0.2 %; Immature Granulocytes Absolute 0.02 #; Lymphocytes # 3.5 10*3/uL (1.4-4.0); Lymphocytes % 40.1 % (21.3-54.2); Mean Corpuscular HGB Conc 32.8 GM/DL (32-36); Mean Corpuscular Volume 94.1 FL (87-102); Mean Platelet Volume 11.9 FL (9.6-12.0); Monocytes # 0.6 10*3/uL (0.11-0.8); Monocytes % 6.5 % (1.7-12.7); Neutrophils % 45.2 % (38.7-73.9); Platelet Count 148 T/CUMM (130-400); Red Blood Count 3.53 MC/CUMM (3.8-5.5); Red Cell Distribution Width 12.9 % (9.3-17.3); White Blood Count 8.62 T/CUMM (4-12)
[2022-08-17] MEDS: LACTATED RINGERS 1,000 ML IV SCH (05:14)
[2022-08-17 05:43] LABS: Osmolality,Calculated 288.3 MOS/KG (273-304); Potassium 3.5 MMOL/L (3.5-5.1); Risk Ratio 3.75; Thyroid Stimulating Hormone 1.9 uIU/ml (0.358-3.74); VLDL Cholesterol 55.4 MG/DL
[2022-08-17] MEDS ORDERED: LEVOTHYROXINE 25 MCG TABLET PO SCH (06:30)
[2022-08-17] MEDS: METHENAMINE HIPPURATE 1 GM TABLET PO SCH (08:15)
[2022-08-17] MEDS: INSULIN LISPRO 100 UNIT/ML SUBCUT SCH ×2 (08:15→12:00)
[2022-08-17] MEDS: PREGABALIN 75 MG CAPSULE PO SCH (08:16)
[2022-08-17] MEDS: busPIRone 15 MG TABLET PO SCH (08:16)
[2022-08-17] MEDS: MENTHOL/ZINC OXIDE OINT 71 GM JAR TOP SCH (08:19)
[2022-08-17] MEDS ORDERED: PANTOPRAZOLE 40 MG TABLET PO SCH (09:00)
[2022-08-17] MEDS ORDERED: CYANOCOBALAMIN 500 MCG TABLET PO SCH (09:00)
[2022-08-17] MEDS ORDERED: ROSUVASTATIN 10 MG TABLET PO SCH (09:00)
[2022-08-17] MEDS ORDERED: INSULIN GLARGINE 100 UNIT/ML SUBCUT SCH (09:00)
[2022-08-17] MEDS ORDERED: CALCIUM (CARBONATE)/VITAMIN D 600 MG-400 UNIT TABLET PO SCH (09:00)
[2022-08-17] MEDS ORDERED: CLOPIDOGREL 75 MG TABLET PO SCH (09:00)
[2022-08-17 12:09] VITALS: BP 169/65
[2022-08-17] MEDS ORDERED: METOPROLOL TARTRATE 25 MG TABLET PO SCH (21:00)
[2022-08-18] MEDS ORDERED: METOPROLOL TARTRATE 25 MG TABLET PO SCH (09:00)
== END 2022-08-17 15:10 | disposition home or self-care (01) ==
LOC: N.ED 10:19 → N.EDINP 10:19 → SUATTDRO 15:15 → N.2E 17:12
PROVIDERS: ADMIT Internal Medicine; ATTEND Internal Medicine